=== PATIENT | female | born 1955 | race Caucasian/White ===

== ENCOUNTER 2020-09-05 07:11 | Emergency (ER) | payer OTHER, SELFPAY ==
[2020-09-05 07:08] VITALS: BP 164/107; PULSE 92; RESP 18; TEMP 37.1; O2SAT 100
--- NOTE | 2020-09-05 07:15 | ECG_ITS ---
Measurements Intervals [place] Rate: 84 P: 62 NH: 203 QRS: -15 QRSD: 105 T: 68 QT: 372 QTc: 442 Interpretive Statements SINUS RHYTHM BORDERLINE AV CONDUCTION DELAY DELAYED PRECORDIAL R/S TRANSITION MINIMAL Q WAVES- HIGH LATERAL LEADS BASELINE ARTIFACT- I, II, AVR, AVL BORDERLINE ECG Electronically Signed On 09-05-2020 7:21:29 CDT by Miguel Angel Haywood D.O.
[2020-09-05 07:31] VITALS: BP 153/80; BP 166/86; PULSE 84; PULSE 85
[2020-09-05 07:32] VITALS: BP 161/88; PULSE 89
[2020-09-05 07:54] LABS: Basophils Absolute Auto 0.1 K/mm3 (0.0-0.1); Basophils Percent Auto 0.5 % (0.2-1.2); Eosinophils Absolute Auto 0.3 K/mm3 (0-0.3); Eosinophils Percent Auto 2.6 % (0-4.4); Hemoglobin 13.1 g/dL (12.0-15.0); Immature Granulocyte Absolute 0.04 K/mm3 (0.00-0.031); Immature Granulocyte Percent A 0.4 % (0-0.5); Lymphocytes Absolute Auto 2.61 K/mm3 (0.9-3.2); Lymphocytes Percent Auto 24.4 % (18.3-44.2); Mean Corpuscular Hemoglobin 31.1 pg (26-34); Mean Corpuscular Volume 97.4 fl (80-100); Monocytes Absolute Auto 0.6 K/mm3 (0.1-0.6); Monocytes Percent Auto 5.6 % (2.6-8.5); Neutrophils Absolute Auto 7.1 K/mm3 (1.3-6.7); Neutrophils Percent Auto 66.5 % (45.5-73.1); Platelet Count Result 329 k/mm3 (150-375); Red Blood Count 4.21 M/mm3 (4.2-5.4); Red Cell Distribution Width 12.7 % (11.5-14.5); White Blood Count 10.7 K/mm3 (4.5-10.0)
[2020-09-05 07:55] LABS: Add Urine Microscopic? NO; Appearance Urine Clear (Clear); Bilirubin Urine Negative (Negative); Blood Urine Negative (Negative); Color Urine Yellow (Yellow); Glucose Urine UA Negative (Negative); Ketones Urine Negative (Negative); Leukocyte Esterase Ur Negative LEU/UL (Negative); Nitrate Urine Negative (Negative); Protein Urine Negative (Negative); Specific Grav Ur 1.015 (1.001-1.035); Urobilinogen Urine Negative mg/dL (<2.0)
[2020-09-05 08:05] LABS: Anion Gap 6 mmol/L (8-16); Blood Urea Nitrogen 19 mg/dL (7-17); Calcium 9.2 mg/dL (8.4-10.2); Carbon Dioxide 28 mmol/L (22-30); Chloride 107 mmol/L (98-107); Estimated CRCL calculation 68 ml/min; Estimated Glomerular Filt Rate > 60; Glucose 148 mg/dL (65-105); Potassium 4.1 mmol/L (3.4-5.0); Sodium 141 mmol/L (137-145)
[2020-09-05 08:58] LABS: Troponin I < 0.012 ng/mL (0.000-0.034)
[2020-09-05 09:50] VITALS: BP 170/102; PULSE 81; RESP 19; O2SAT 99
--- NOTE | 2020-09-05 10:07 | ED.DIZZY ---
HPI - Dizziness General Chief Complaint: Dizziness Stated Complaint: dizzy Time Seen by Provider: 09/05/20 08:31 Source: patient Mode of arrival: ambulatory Limitations: no limitations History of Present Illness HPI Narrative: 64-year-old female Presents for evaluation of an episode of dizziness Patient states she was working at a [employer] this morning when everything started spinning and she had to kneel down because she thought she might fall or faint; but she did not do either of those things Symptoms improved after a few minutes She notes she had a similar episode 2 days previous which was less severe Patient also reports that 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 Harman for that Here she reported some mild nausea which was transient and there was no vomiting No visual symptoms and no gait disturbance, no chest discomfort no palpitations MD elicited complaint: dizziness Related Data Home Medications Medication Instructions Recorded Confirmed atorvastatin 20 mg tablet 20 mg PO DAILY 04/19/20 fenofibrate 160 mg tablet 160 mg PO DAILY 04/19/20 omeprazole 20 mg capsule,delayed 20 mg PO BID 04/19/20 release amlodipine-benazepril cap 09/05/20 bupropion HCl PO 09/05/20 09/05/20 desvenlafaxine succinate [Pristiq] 100 mg PO DAILY 09/05/20 09/05/20 metaxalone 800 mg PO TID 09/05/20 09/05/20 zolpidem mg SUBLINGUAL 09/05/20 Allergies Allergy/AdvReac Type Severity Reaction Status Date / Time No Known Allergies Allergy Verified 09/05/20 07:19 Review of Systems Review of Systems: All systems reviewed & are unremarkable except as noted in HPI and below Constitutional: Constitutional: Denies fatigue, Denies fever(s) and Denies headache(s) Eyes: Eyes: Reports no additional eye complaints and Denies change in vision ENT: Denies headache(s), Denies epistaxis, Denies nasal congestion and Denies sore throat Comments: Hearing loss left ear, tinnitus Cardiovascular: Cardiovascular: Denies chest pain, Denies rapid heart rate, Denies leg edema, Denies palpitations and Denies dyspnea Respiratory: Respiratory: Denies cough and Denies dyspnea Gastrointestinal: Gastrointestinal: Denies abdominal pain, Denies diarrhea, Reports nausea and Denies vomiting Genitourinary: Genitourinary: Denies urinary frequency and Denies dysuria Musculoskeletal: Musculoskeletal: Denies deformity, Denies arthralgias, Denies joint swelling, Denies muscle weakness and Denies numbness Integumentary/Breasts: Skin/Breast: Denies rash and Denies wounds Neurologic: Denies headache(s), Denies focal weakness, Denies numbness and Denies weakness Psychiatric: Psychiatric: Reports no additional psychiatric complaints Endocrine: Endocrine: Denies fatigue and Denies palpitations Hematologic/Lymphatic: Hematologic/Lymphatic: Denies easy bleeding and Denies easy bruising PMFSH Family History Family History (Updated 02/19/18 @ 15:57 by DOCTOR UNKNOWN) Other Diabetes mellitus Family history of cardiovascular disease Hypertension Social History Social History (Updated 04/19/20 @ 14:59 by Kat Romero, [facility]) Smoking packs per day: 1 Smoking cigarettes per day: 20.0 Years smoked: 25 Smoking pack-years: 25.00 Smoking status: Current every day smoker Tobacco type: cigarettes Second hand tobacco smoke exposure: No Alcohol intake: former Substance use: never Substance use type: does not use Gender identity (if verbalized by the patient): Female Exam Const: General: no acute distress, well developed, alert and awake Orientation/consciousness: patient oriented x3 (alert) Limitations: no limitations HENMT: Head: normocephalic and atraumatic Ears: external ears normal and TM's normal bilaterally General nose exam: No nasal discharge present and no epistaxis Face and sinus: face symmetric Eyes: Conjunctivae: conjunctivae n
[2020-09-05 10:20] VITALS: BP 144/97; PULSE 69; RESP 18; O2SAT 97
== END 2020-09-05 10:28 | disposition home or self-care (01) ==
PROVIDERS: Emergency Provider Emergency Medicine; PCP Family Medicine Adolescent Medicine
DX: R42 Dizziness and giddiness (principal); H93.19 Tinnitus, unspecified ear; H91.90 Unspecified hearing loss, unspecified ear; F17.210 Nicotine dependence, cigarettes, uncomplicated; R94.31 Abnormal electrocardiogram [ECG] [EKG]
CPT/HCPCS: 36415; 80048; 81003; 84484; 85025; 93005; 99284

== ENCOUNTER → 2020-12-23 07:02 | Outpatient (CLI) | payer OTHER, SELFPAY ==
[2020-12-23 19:11] LABS: SARS-CoV-2 RNA PCR Positive
== END ==
PROVIDERS: PCP Family Medicine Adolescent Medicine; Visit Provider Family Medicine Adolescent Medicine
DX: U07.1 COVID-19 (principal)
CPT/HCPCS: C9803; U0003; U0005

== ENCOUNTER 2022-06-13 09:35 | Outpatient (CLI) | payer OTHER, SELFPAY ==
--- NOTE | ~2022-06-13 | MR_ITS ---
MRI of the brain Clinical History: Dizziness and giddiness Technique: Axial and sagittal T1-weighted images were acquired. These were followed by axial T2-weigh ines, diffusion weighted, gradient, and FLAIR images. Findings: There is no acute infarct, intracranial hemorrhage, or mass lesion. Mild chronic white jorge er changes are present at the periventricular white matter bilaterally. Ventricles and subarachnoid spaces are unremarkable. Orbits are unremarkable. Minimal left ethmoid si nus disease present. Remaining paranasal sinuses and mastoid air cells are clear. Major intracranial flow voids are intact. Sagittal midline structures are intact. IMPRESSION: No acute intracranial abnormality. Mild chronic white matter changes. Minimal left ethmoid sinus disease. Reviewed, dictated and finalized at location . 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
== END 2022-06-13 09:36 | disposition home or self-care (01) ==
PROVIDERS: PCP Family Medicine Adolescent Medicine; Visit Provider Physician Assistant
DX: R42 Dizziness and giddiness (principal); R93.0 Abnormal findings on diagnostic imaging of skull and head, not elsewhere classified
CPT/HCPCS: 70551

== ENCOUNTER 2023-02-18 10:31 | Outpatient (CLI) | payer OTHER, SELFPAY ==
[2023-02-18 11:56] LABS: Basophils Absolute Auto 0.1 K/mm3 (0.0-0.1); Basophils Percent Auto 0.5 % (0.2-1.2); Eosinophils Absolute Auto 0.2 K/mm3 (0-0.3); Eosinophils Percent Auto 1.9 % (0-4.4); Hematocrit 47.2 % (37.0-47.0); Hemoglobin 15.4 g/dL (12.0-15.0); Immature Granulocyte Absolute 0.03 K/mm3 (0.00-0.031); Immature Granulocyte Percent A 0.3 % (0-0.5); Lymphocytes Absolute Auto 2.23 K/mm3 (0.9-3.2); Lymphocytes Percent Auto 23.5 % (18.3-44.2); Mean Corpuscular HGB Conc 32.6 g/dl (32-36); Mean Corpuscular Hemoglobin 32.2 pg (26-34); Mean Corpuscular Volume 98.5 fl (80-100); Mean Platelet Volume 9.8 fl (7.4-10.4); Monocytes Absolute Auto 0.6 K/mm3 (0.1-0.6); Monocytes Percent Auto 6.3 % (2.6-8.5); Neutrophils Absolute Auto 6.4 K/mm3 (1.3-6.7); Neutrophils Percent Auto 67.5 % (45.5-73.1); Platelet Count Result 308 k/mm3 (150-375); Red Blood Count 4.79 M/mm3 (4.2-5.4); Red Cell Distribution Width 12.7 % (11.5-14.5); White Blood Count 9.5 K/mm3 (4.5-10.0)
[2023-02-18 12:11] LABS: CRP 0.8 mg/dL (<1.0); Creatine Kinase 88 U/L (30-135)
[2023-02-18 12:14] LABS: Rheumatoid Factor < 12.0 IU/ML (<12)
[2023-02-18 15:32] LABS: Erythrocyte Sedimentation Rate 5 mm/hr (0-20)
[2023-02-23 14:08] LABS: Anti Nuclear Antibody Pattern Nuclear, Nucleolar
== END 2023-02-18 10:32 | disposition home or self-care (01) ==
PROVIDERS: PCP Family Medicine Adolescent Medicine; Visit Provider Nurse Practitioner Family
DX: M79.10 Myalgia, unspecified site (principal)
CPT/HCPCS: 36415; 82550; 85025; 85652; 86038; 86039; 86140; 86430

== ENCOUNTER 2023-02-23 10:57 | Outpatient (CLI) | payer OTHER, SELFPAY ==
--- NOTE | ~2023-02-23 | CT_ITS ---
CT Scan of the Chest without Contrast: Clinical Indication: Lung cancer screening, personal history of nicotine dependence Technique: Contiguous sections were acquired throughout the chest without intravenous contrast. Dose reduction technique was used on this scan by utilizing automated exposure control and iterative recon struction technique. The dose-length product (DLP) was 183.37 mGy-cm. Findings: There is no evidence of any significant mediastinal, hilar or axillary lymphadenopathy. The mediastin al soft tissues appear normal. There is no evidence of pleural or pericardial effusion. 3 mm right lower lobe pulmonary nodule present (axial image 62). No other pulmonary nodule identified . Images through the upper abdomen reveal small calcified gallstones. 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 Impression: Lung RADS 2: Benign appearance. 12 month follow-up screening CT advised. Cholelithiasis. Reviewed, dictated and finalized at [facility]. Impression: Lung RADS 2: Benign appearance. 12 month follow-up screening CT advised. Cholelithiasis.
== END 2023-02-23 10:58 | disposition home or self-care (01) ==
PROVIDERS: PCP Family Medicine Adolescent Medicine; Visit Provider Nurse Practitioner Family
DX: Z12.2 Encounter for screening for malignant neoplasm of respiratory organs (principal); K80.20 Calculus of gallbladder without cholecystitis without obstruction; Z87.891 Personal history of nicotine dependence
CPT/HCPCS: 71271

== ENCOUNTER 2023-02-27 10:51 | Emergency (ER) | payer OTHER, SELFPAY ==
--- NOTE | ~2023-02-27 | US_ITS ---
EXAMINATION: US venous doppler [facility] DATE: 02/27/2023 12:28 INDICATION: Left lower limb pain TECHNIQUE: Bosch scale images without and with compression and Doppler images of the left lower extrem ity veins were obtained. COMPARISON: None FINDINGS: The left common femoral vein, profunda femoral vein, femoral vein, popliteal vein, peroneal trunk, posterior tibial veins, and greater saphenous vein are patent. A 1.7 cm Cisse's cyst is noted . IMPRESSION: 1. Patent left lower extremity veins. No evidence of deep venous thrombosis. Reviewed, dictated and finalized at location B.
--- NOTE | ~2023-02-27 | XR_ITS ---
EXAMINATION: XR knee LT min 4V DATE: 02/27/2023 12:14 INDICATION: Left knee pain and swelling TECHNIQUE: Four views of the left knee were obtained. COMPARISON: None. FINDINGS: Alignment is normal. No fracture or osteochondral lesion. There is mild tricompartmental os teoarthritis characterized by tiny marginal osteophytes. Chondrocalcinosis is noted. No joint effusio n/synovitis. Soft tissues are unremarkable. IMPRESSION: 1. No acute osseous abnormality. Reviewed, dictated and finalized at location B.
[2023-02-27 11:10] VITALS: BP 136/78; PULSE 78; RESP 18; TEMP 37.2; O2SAT 95
--- NOTE | 2023-02-27 12:14 | PC.NURSE ---
pt in Xray at this time.
--- NOTE | 2023-02-27 12:29 | PC.NURSE ---
pt returned to room 16 at this time
--- NOTE | 2023-02-27 12:41 | ED.GENADULT ---
HPI - General Adult General Chief complaint: Extremity Injury, Lower Stated complaint: left lower leg pain Time Seen by Provider: 02/27/23 11:05 History of Present Illness HPI narrative: Estela Watson is a 67 y/o female who presents with reports of having bilateral upper and lower extremity pain for several weeks her PCP increased her Lyrica / and Cymbalta and it helped but the pain to her left lower extremity has continued and feels worse. She denies any numbness / tingling to her leg. She complains that her pain is from her knee down to her ankle and is worse with ambulation. Related Data Allergies Allergy/AdvReac Type Severity Reaction Status Date / Time atorvastatin AdvReac Mild tinnitus Verified 02/14/23 12:51 Review of Systems Review of Systems: CONSTITUTIONAL: Denies fever, chills, or sweats. EYES: Denies visual changes, redness, or discharge. ENT: Denies rhinorrhea, congestion, sore throat, or otalgia. CARDIOVASCULAR: Denies chest pain, palpitations, or edema. RESPIRATORY: Denies cough or dyspnea. GASTROINTESTINAL: Denies abdominal pain, nausea, vomiting, or diarrhea. GENITOURINARY: Denies dysuria or hematuria. SKIN: Denies rash or itching. MUSCULOSKELETAL: Complains of pain to her left knee down to her ankle for about 3 weeks NEUROLOGIC: Denies headache, numbness, dizziness, or weakness. PSYCHIATRIC: Denies anxiety or depression. [facility] Surgical History Surgical History H/O hysterectomy with unilateral oophorectomy left oophorectomy Hx of arthrodesis right ankle 07/29 Dr. Garcia Family History Family History Mother Diabetes mellitus Heart disease CKD (chronic kidney disease) Son Melanoma Other Family history of cardiovascular disease Hypertension Social History Social History Smoking packs per day: 1 Smoking cigarettes per day: 20.0 Years smoked: 25 Smoking pack-years: 25.00 Smoking status: Current every day smoker Tobacco type: cigarettes Second hand tobacco smoke exposure: No Alcohol intake: never Substance use: never Substance use type: does not use Living arrangements: alone Occupation/Education: occupation Gender identity (if verbalized by the patient): Female Sexual Orientation (if Verbalized by the Patient): Straight or Heterosexual Spiritual care concerns: No Agree to blood products: Yes Exam Narrative: GENERAL: Well-appearing, well-nourished, and in no acute distress. HEAD: Normocephalic, atraumatic. EYES: PERRLA and EOMI. ENT: Nares clear, no rhinorrhea or epistaxis. Mucous membranes moist. Oropharynx without tonsillar hypertrophy exudate or other lesions. Bilateral TMs pearly montoya nonbulging NECK: Supple. No adenopathy or masses. No carotid bruits or JVD CHEST: Clear to auscultation. No respiratory distress. No wheezes rales or rhonchi HEART: Regular rate and rhythm. No murmur heard. Normal peripheral pulses. ABDOMEN: Soft, nontender, nondistended, normal active bowel sounds. EXTREMITIES: Normal range of motion, pain noted with palpation to left lower extremity/ evidence of a large bakers cyst behind left knee -distal pulses present SKIN: Warm, dry, no rash. NEURO: No focal deficits. Alert and oriented x3. PSYCH: Normal mood and affect. Course Vital Signs Vital signs: Vital Signs Temperature 37.2 C 02/27/23 11:10 Pulse Rate 78 02/27/23 11:10 Respiratory Rate 18 02/27/23 11:10 Blood Pressure 136/78 02/27/23 11:10 Pulse Oximetry 95 02/27/23 11:10 Temperature 37.2 C 02/27/23 11:10 Pulse Rate 78 02/27/23 11:10 Respiratory Rate 18 02/27/23 11:10 Blood Pressure 136/78 02/27/23 11:10 Pulse Oximetry 95 02/27/23 11:10 Medical Decision Making MDM Narrative Medical decision making narrative: On exam pt is noted to have pain to
[2023-02-27] MEDS: ACETAMINOPHEN 500 MG TABLET 1000 MG PO (12:57)
[2023-02-27 13:10] VITALS: BP 140/88; PULSE 61; RESP 18; O2SAT 98
== END 2023-02-27 13:11 | disposition home or self-care (01) ==
PROVIDERS: Emergency Provider Nurse Practitioner Family; PCP Family Medicine Adolescent Medicine
DX: M71.22 Synovial cyst of popliteal space [Baker], left knee (principal); M17.12 Unilateral primary osteoarthritis, left knee; F17.210 Nicotine dependence, cigarettes, uncomplicated; Z90.710 Acquired absence of both cervix and uterus; Z90.721 Acquired absence of ovaries, unilateral
CPT/HCPCS: 73564; 93971; 99284; A9270

== ENCOUNTER 2023-04-25 09:38 | Outpatient (CLI) | payer OTHER, SELFPAY ==
--- NOTE | ~2023-04-25 | MR_ITS ---
MRI of the left knee Clinical history: Pain Technique: Coronal proton density and proton density-weighted images, sagittal proton-density and T2 fat-sat images, and axial proton-density fat-saturated images were acquired. Findings: Anterior and posterior cruciate ligaments are intact. Medial collateral ligament and the la teral collateral ligament complex are intact. Popliteus tendon is intact. There is a radial tear at the posterior root of the medial meniscus. No lateral meniscal tear seen. There is diffuse high-grade chondromalacia the medial compartment with amorphous reactive marrow brenda a throughout the medial tibial plateau region. Possible early subchondral insufficiency fracture pres ent in the medial tibial plateau region. There is mild chondral thinning at the lateral joint line. T here is extensive moderate to high-grade chondromalacia patella, especially at the apex and medial fa cet. Small osteophytes are present, especially the medial joint line. Extensor mechanism is intact. Small joint effusion present. [id number] Cisse's cyst present, w ith internal debris/synovitis, or possibly chondroid loose bodies. Impression: Radial tear at the posterior to the medial meniscus. Extensive reactive marrow edema throughout the medial tibial plateau region, with suspected early sub chondral insufficiency fracture line present. Diffuse high-grade chondromalacia the medial compartment, as well as moderate to severe chondral salty warner patella. Small joint effusion with small to moderate Cisse's cyst. Multiple chondroid loose bodies versus othe r debris or synovitis within the Cisse's cyst. Reviewed, dictated and finalized at [facility]. 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 Extensive reactive marrow edema throughout the medial tibial plateau region, wi th suspected early subchondral insufficiency fracture line present. Diffuse high-grade chondromalacia the medial compartment, as well as moderate t o severe chondral malacia patella. Small joint effusion with small to moderate Cisse's cyst. Multiple chondroid lo ose bodies versus other debris or synovitis within the Cisse's cyst.
== END 2023-04-25 09:39 ==
LOC: MICIMG 09:39
PROVIDERS: PCP Family Medicine Adolescent Medicine; Visit Provider Nurse Practitioner Family
DX: S83.242A Other tear of medial meniscus, current injury, left knee, initial encounter (principal); M94.262 Chondromalacia, left knee; M25.462 Effusion, left knee; M71.22 Synovial cyst of popliteal space [Baker], left knee
CPT/HCPCS: 73721

== ENCOUNTER → 2023-05-29 13:29 | Outpatient (CLI) | payer OTHER, SELFPAY ==
--- NOTE | ~2023-05-29 | MM_ITS ---
EXAMINATION: MM screening mari BI w darshan HISTORY: Screening mammogram TECHNIQUE: Craniocaudal and mediolateral oblique 3-D tomosynthesis images were obtained and synthetic 2-D images were generated. CAD analysis was submitted and interpreted. COMPARISON: 12/15/2010 bilateral screening mammogram BREAST PARENCHYMAL COMPOSITION: The breasts are almost entirely fatty. FINDINGS: There is no evidence of suspicious mass, calcification, or architectural distortion to sugg est malignancy in either breast. There has been no suspicious interval change. IMPRESSION: 1. No mammographic evidence of malignancy. 2. Recommend routine screening mammography in one year. BI-RADS Category 1: Negative Reviewed, dictated and finalized at location A. INFRASTRUCTURE SPECIALIST
== END ==
PROVIDERS: PCP Nurse Practitioner Family; Visit Provider Nurse Practitioner Family
DX: Z12.31 Encounter for screening mammogram for malignant neoplasm of breast (principal)
CPT/HCPCS: 77063; 77067

== ENCOUNTER 2023-06-24 10:45 | Outpatient (CLI) | payer OTHER, SELFPAY ==
--- NOTE | 2023-06-24 10:51 | ECG_ITS ---
Measurements Intervals [place] Rate: 70 P: 56 NC: 213 QRS: -23 QRSD: 102 T: 109 QT: 392 QTc: 423 Interpretive Statements SINUS RHYTHM WITH FIRST DEGREE AV BLOCK BORDERLINE R WAVE PROGRESSION, ANTERIOR LEADS ST-T WAVE ABNORMALITY IN HIGH LATERAL LEADS- CONSIDER ISCHEMIA BASELINE ARTIFACT- I, II, III, AVR, AVL, AVF ABNORMAL ECG COMPARED TO ECG 09/05/2020 07:17:15 FIRST DEGREE AV BLOCK NOW PRESENT ST-T WAVE ABNORMALITY NOW PRESENT Electronically Signed On 06-24-2023 11:20:26 JUICE SCALEMAN by Miguel Angel Haywood D.O.
== END 2023-06-24 10:46 | disposition home or self-care (01) ==
LOC: ANHSURGERY 10:48
PROVIDERS: PCP Nurse Practitioner Family; Visit Provider Orthopaedic Surgery
DX: Z01.818 Encounter for other preprocedural examination (principal); I10 Essential (primary) hypertension; I44.0 Atrioventricular block, first degree; R94.31 Abnormal electrocardiogram [ECG] [EKG]; R93.1 Abnormal findings on diagnostic imaging of heart and coronary circulation
CPT/HCPCS: 93005

== ENCOUNTER 2023-07-17 09:47 | Outpatient (CLI) | payer OTHER, SELFPAY ==
--- NOTE | ~2023-07-17 | NM_ITS ---
EXAMINATION: NM meliton stress w perfusion DATE: 07/17/2023 11:51 INDICATION: Abnormal EKG TECHNIQUE: Rest images were obtained following intravenous administration of 10.3 mCi Tc99m tetrofosm in (Myoview). The patient was infused intravenously with Lexiscan (Regadenoson). Then, 33.7 mCi Tc99m tetrofosmin (Myoview) was administered intravenously, and stress images were obtained. Data was elizabeth nstructed into short axis and horizontal and vertical long axis SPECT images. Gated SPECT images were also obtained. COMPARISON: None. FINDINGS: Small region of mild decreased activity at the mid anterolateral segment on the rest and ga ines stress images which is not evident on the ungated post stress imaging is equivocal for infarct. N o nonreversible ischemia. There is normal left ventricular chamber size, wall motion and ejection fr action. Left ventricular ejection fraction measures >70%. IMPRESSION: 1. Possible small mild infarct at the mid anterolateral segment although suspicion is low. No reversi ble ischemia. 2. Left ventricular ejection fraction measuring >70%. Reviewed, dictated and finalized at location A. 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 Possible small mild infarct at the mid anterolateral segment although suspic ion is low. No reversible ischemia. 2. Left ventricular ejection fraction measuring >70%.
--- NOTE | 2023-07-17 09:50 | EST_ITS ---
Patient Info Name: Estela Watson Age: 67 years : 1955 Gender: Female Ht: 63 in Wt: 200 lbs BSA: 2.05 m2 HR: 69 bpm BP: 125 / 76 mmHg Heart Rhythm: Sinus Rhythm Exam Date: 07/17/2023 10:50 AM Exam Location: Echo Lab Patient Status: Outpatient Admit Date: 07/17/2023 Staff Ordering Physician: Jorge Alberto Soto MD Attending Provider: Jorge Alberto Soto MD Exercise Technologist: Loretta Olivares RDCS Exercise Physician: Miguel Angel Haywood DO Exam Type: CA stress meliton w NM Study Info A regadenoson stress test was performed. Summary 1. 1. Negative lexiscan stress test for ischemic ST changes by ECG criteria. 2. 2. Stable hemodynamics throughout the test. 3. 3. Nuclear scan to follow and will be reported separately. Please correlate with it. 4. 4. Patient informed of the above results. Protocol: Lexiscan Stress ECG Details Stage: REST Duration (min): 1 min : 45 sec HR (bpm): 69 SBP (mmHg): 125 DBP (mmHg): 76 Stage: REST Duration (min): 7 min : 52 sec HR (bpm): 75 SBP (mmHg): 125 DBP (mmHg): 76 Stage: STAGE 1 Duration (min): 1 min : 0 sec HR (bpm): 89 SBP (mmHg): 129 DBP (mmHg): 83 Stage: RECOVERY Duration (min): 1 min : 0 sec HR (bpm): 96 SBP (mmHg): 129 DBP (mmHg): 83 Stage: RECOVERY Duration (min): 2 min : 0 sec HR (bpm): 93 SBP (mmHg): 129 DBP (mmHg): 83 Stage: RECOVERY Duration (min): 3 min : 0 sec HR (bpm): 90 SBP (mmHg): 133 DBP (mmHg): 82 Stage: RECOVERY Duration (min): 3 min : 33 sec HR (bpm): 90 SBP (mmHg): 133 DBP (mmHg): 82 Rest HR: 75 bpm Peak HR: 97 bpm Rest Sys BP: 125 mmHg Peak Sys BP: 133 mmHg Max Pred HR: 152 bpm % Max Pred HR: 64 % Target HR: 129 bpm Max RPP: 12,901 bpm*mmHg Termination Reason: Completed protocol Cardiac Symptoms: Shortness of breath Total Time: 1 min : 0 sec Rest Oliveira BP: 76 mmHg Peak Oliveira BP: 82 mmHg Total Dose: 0.4 mg Resting ECG Sinus rhythm, borderline ST-T wave in high lateral leads. Stress ECG No ST changes. Arrhythmias None. Report Signatures
== END 2023-07-17 09:48 | disposition home or self-care (01) ==
PROVIDERS: PCP Family Medicine Adolescent Medicine; Visit Provider Family Medicine Adolescent Medicine
DX: R93.1 Abnormal findings on diagnostic imaging of heart and coronary circulation (principal); R94.31 Abnormal electrocardiogram [ECG] [EKG]
CPT/HCPCS: 78452; 93017; A9502; J2785

== ENCOUNTER 2023-07-23 12:44 | Outpatient (CLI) | payer OTHER, SELFPAY ==
[2023-07-23 13:35] LABS: Hematocrit 46.6 % (37.0-47.0); Mean Corpuscular HGB Conc 32.2 g/dl (32-36); Mean Corpuscular Hemoglobin 32.2 pg (26-34); Mean Platelet Volume 10.1 fl (7.4-10.4); Platelet Count Result 305 k/mm3 (150-375); Red Blood Count 4.66 M/mm3 (4.2-5.4); White Blood Count 8.3 K/mm3 (4.5-10.0)
[2023-07-23 13:45] LABS: Alanine Aminotransferase 30 U/L (6-35); Albumin Level 4.2 g/dL (3.5-5.1); Alkaline Phosphatase 61 U/L (38-126); Anion Gap 4 mmol/L (8-16); Aspartate Amino Transferase 37 U/L (14-36); Bilirubin,Total 0.5 mg/dL (0.2-1.3); Blood Urea Nitrogen 13 mg/dL (7-17); Calcium 9.6 mg/dL (8.4-10.2); Carbon Dioxide 29 mmol/L (22-30); Chloride 107 mmol/L (98-107); Cholesterol 195 mg/dL (0-200); Estimated Glomerular Filt Rate > 60; Glucose 105 mg/dL (65-110); HDL Direct 34 mg/dL; Potassium 3.8 mmol/L (3.4-5.0); Sodium 140 mmol/L (137-145); Triglycerides 173 mg/dL (<150)
[2023-07-23 13:56] LABS: LDL Cholesterol Direct 131 mg/dL
[2023-07-23 22:06] LABS: Hemoglobin A1C 6.1 % (<5.7)
== END 2023-07-23 12:45 | disposition home or self-care (01) ==
PROVIDERS: PCP Family Medicine Adolescent Medicine; Visit Provider Family Medicine Adolescent Medicine
DX: R73.01 Impaired fasting glucose (principal); E78.2 Mixed hyperlipidemia; I10 Essential (primary) hypertension; F17.210 Nicotine dependence, cigarettes, uncomplicated
CPT/HCPCS: 36415; 80053; 80061; 83036; 85027

== ENCOUNTER 2023-08-28 00:54 | Day surgery (SDC) | payer OTHER, SELFPAY ==
[2023-06-20 15:56] VITALS: BMI 37.8
--- NOTE | 2023-06-20 16:18 | PC.NURSE ---
Report to the Outpatient Waiting Room, entrance under the green pavilion located off [facility], at time _11:30AM on date __06/26/23 . Planned Procedure Time: _1:30PM . Time changes happen often and if your time is changed the preop area will call you the afternoon before. - You and your visitor will be asked to self-screen and do not enter if you have any COVID symptoms. - A mask is optional within the hospital at this time. Patients may have clear liquids (water, carbonated beverages, clear teas, apple juice) until 3 hours prior to surgery with a maximum of 20 ounces. - No food from midnight until time of surgery. Take the following medications with a SIP of water the morning of surgery: __DULOXETINE & ALPRAZOLAM AND MECLIZINE NEEDED DO NOT STOP ANY OF YOUR OTHER PRESCRIPTION MEDICATIONS PRIOR TO SURGERY ?EXCEPT THE FOLLOWING Medications to discontinue per physician ____NONE Date to take last dose Please no make-up, nail kuwaiti, hairspray, perfume, deodorant, or body powder the day of surgery. No jewelry (including any body piercings) or valuables the day of surgery, leave them at home. Please take a shower or bath the night before, or the morning of, surgery with an antibacterial soap. Wear comfortable, loose fitting clothing. Children are encouraged to wear pajamas. - Jewelry must be removed prior to entering the operating room. Rings and piercings that are not removed may be cut off. - The hospital will not accept responsibility for valuables. - Please leave all valuables, including medications, at home the day of surgery. If you are going home after surgery, a licensed class b truck driver must drive you home. - NO public transportation without another adult if you receive anesthesia. - We recommend that an adult stay with you for 24 hours following discharge. - We also recommend that you do not drive, make important decision, drink alcoholic beverages, or take any drugs that were not prescribed by your health care provider for at least 24 hours after your discharge time. Follow any additional instructions given to you from your surgeon. If you or anyone in your household have experienced Covid symptoms in the past week, please notify your surgeon or the nurse liaison at the phone number below for possible testing. Telephone instructions given to ___PATIENT and asked if any additional questions and then verbalized understanding. Patient advised to call surgeon office or pre surgery nurse liaison [phone] if any additional questions. Report to the Outpatient Waiting Room, entrance under the green pavilion located off [address], at time on date . Planned Procedure Time: . Time changes happen often and if your time is changed the preop area will call you the afternoon before. - You and your visitor will be asked to self-screen and do not enter if you have any COVID symptoms. - A mask is optional within the hospital at this time. Patients may have clear liquids (water, carbonated beverages, clear teas, apple juice) until 3 hours prior to surgery with a maximum of 20 ounces. - No food from midnight until time of surgery - Infants may have breast milk until 4 hours before surgery, infant formula 6 hours prior to surgery. - Children will be allowed to drink immediately following surgery. If applicable, please bring a bottle or sippy cup to assist with drinking. Juice, water, soda, and popsicles are readily available. For infants on formula, please bring formula the day of surgery. Pacifiers are allowed. Take the following medications with a SIP of water the morning of surgery: DO NOT STOP ANY OF YOUR OTHER PRESCRIPTION MEDICATIONS PRIOR TO SURGERY ?EXCEPT THE FOLLOWING Medications to discontinue per physician Date to take last dose Pl
[2023-08-21 09:41] VITALS: BMI 35.5
--- NOTE | 2023-08-21 10:04 | PC.NURSE ---
PT WAS RESCHEDULED FROM 06/26/23 TO 08/28/23 R/T ABN PRE-OP EKG. STRESS TEST COMPLETED, NO INTERVENTION. Report to the Outpatient Waiting Room, entrance under the green pavilion located off [facility], at time __11:30AM on date __08/28/23 . Planned Procedure Time: __1:30PM . Time changes happen often and if your time is changed the preop area will call you the afternoon before. - You and your visitor will be asked to self-screen and do not enter if you have any COVID symptoms. - A mask is optional within the hospital at this time. Patients may have clear liquids (water, carbonated beverages, clear teas, apple juice) until 3 hours prior to surgery with a maximum of 20 ounces. - No food from midnight until time of surgery. Take the following medications with a SIP of water the morning of surgery: __DULOXETINE. MAY TAKE ALPRAZOLAM AND MECLIZINE NEEDED._ DO NOT STOP ANY OF YOUR OTHER PRESCRIPTION MEDICATIONS PRIOR TO SURGERY ?EXCEPT THE FOLLOWING Medications to discontinue per physician NONE Date to take last dose Please no make-up, nail central african, hairspray, perfume, deodorant, or body powder the day of surgery. No jewelry (including any body piercings) or valuables the day of surgery, leave them at home. Please take a shower or bath the night before, or the morning of, surgery with an antibacterial soap. Wear comfortable, loose fitting clothing. Children are encouraged to wear pajamas. - Jewelry must be removed prior to entering the operating room. Rings and piercings that are not removed may be cut off. - The hospital will not accept responsibility for valuables. - Please leave all valuables, including medications, at home the day of surgery. If you are going home after surgery, a licensed commercial relief driver must drive you home. - NO public transportation without another adult if you receive anesthesia. - We recommend that an adult stay with you for 24 hours following discharge. - We also recommend that you do not drive, make important decision, drink alcoholic beverages, or take any drugs that were not prescribed by your health care provider for at least 24 hours after your discharge time. For Pediatric surgeries, we recommend two adults accompany the child home. Follow any additional instructions given to you from your surgeon. If you or anyone in your household have experienced Covid symptoms in the past week, please notify your surgeon or the nurse liaison at the phone number below for possible testing. Telephone instructions given to ___PATIENT and asked if any additional questions and then verbalized understanding. Patient advised to call surgeon office or pre surgery nurse liaison [phone] if any additional questions.
[2023-08-28] VITALS (9 sets, daily range): BP systolic 113–148; BP diastolic 66–80; PULSE 65–72; RESP 16–20; TEMP 36.3–36.6; O2SAT 92–100
--- NOTE | 2023-08-28 07:50 | WPDHPUPDATE1 ---
History and Physical Update Update Date/Time: 08/28/23 07:50 History and Physical has been reviewed, including an updated exam of the patient. There are NO changes in the patient's condition. Risks, benefits, and alternatives have been discussed and questions answered. Patient agrees to proceed with procedure.
[2023-08-28] MEDS: CELECOXIB 200 MG CAPSULE PO (12:36)
[2023-08-28] MEDS: ACETAMINOPHEN 500 MG TABLET 1000 MG PO (12:36)
[2023-08-28] MEDS: LACTATED RINGERS 1,000 ML 30 ML IV CONT ×2 (12:38→15:14)
--- NOTE | 2023-08-28 13:05 | WPDANESEPPF ---
Anes - Initial Pre Proc Eval Procedure: Operation Date: 08/28/23 13:30 Proposed Procedures p Left Knee Arthroscopy, Proceed As Indicated - Garcia Michele MD Date/Time: 08/28/23 13:05 Surgeon: Garcia Michele MD Pre Op Diagnosis: left knee medial meniscal tear Patient Data Age: 67 Gender: F Height: 1.6 m Weight: 94.65 kg Last Vital Signs Temp 36.6 C 08/28/23 11:51 Pulse 71 08/28/23 11:51 Resp 18 08/28/23 11:51 BP 133/76 08/28/23 11:51 Pulse Ox 96 08/28/23 11:51 O2 Del Method Room Air 08/28/23 11:51 Allergies Allergy/AdvReac Type Severity Reaction Status Date / Time atorvastatin AdvReac Mild tinnitus Verified 08/28/23 12:41 meperidine AdvReac Nausea and Verified 08/28/23 12:41 Vomiting Home Medications Medication Instructions Recorded Confirmed Type celecoxib 200 mg capsule See Rx Instructions .Route 02/14/23 08/28/23 Rx .COMPLEX #90 caps alprazolam 0.5 mg tablet 0.5 mg PO TID PRN anxiety #180 tabs 03/07/23 08/28/23 Rx zolpidem 10 mg tablet 10 mg PO QHS #90 tabs 03/21/23 08/28/23 Rx fenofibrate 160 mg tablet See Rx Instructions .Route 05/13/23 08/28/23 Rx .COMPLEX #90 tabs amlodipine 10 mg-benazepril 20 mg 1 cap PO QAM 06/20/23 08/28/23 History capsule chlorhexidine gluconate 4 % 1 applic topical ONCE #237 mL 06/20/23 08/28/23 Rx topical liquid (Hibiclens) meclizine 25 mg tablet 25 mg PO QID PRN Dizziness Or 06/20/23 08/28/23 History Vertigo duloxetine 60 mg capsule,delayed 60 mg PO BID #60 caps 08/13/23 08/28/23 Rx release tizanidine 2 mg tablet 2 mg PO TID PRN muscle spasticity 08/13/23 08/28/23 Rx #60 tabs Patient hx anesthesia problems: none Family hx anesthesia problems: none Results Review: All pre-operative results and documents have been reviewed as part of the pre-operative evaluation. [facility] Past Medical History Medical History Counseling on health promotion and disease prevention Encounter for medication management Generalized osteoarthritis of multiple sites Inflammatory arthritis Left knee pain Medial meniscus tear Smoking Surgical History Surgical History H/O hysterectomy with unilateral oophorectomy left oophorectomy History of carpal tunnel surgery Hx of arthrodesis right ankle 07/29 Dr. Garcia Family History Family History Mother Diabetes mellitus Heart disease CKD (chronic kidney disease) Son Melanoma Other Family history of cardiovascular disease Hypertension Social History Social History Smoking packs per day: 1 Smoking cigarettes per day: 20.0 Years smoked: 28 Smoking pack-years: 28.00 Smoking status: Current every day smoker Tobacco type: cigarettes Second hand tobacco smoke exposure: No Additional smoking assessment comments: SMOKING 3/4 PACK/DAY CURRENTLY Alcohol intake: never Substance use: never Substance use type: does not use Living arrangements: with family Additional living arrangements comments: [facility] Occupation/Education: occupation Additional occupation/education comments: [employer] Gender identity (if verbalized by the patient): Female Sexual Orientation (if Verbalized by the Patient): Straight or Heterosexual Spiritual care concerns: No Agree to blood products: Yes Anes - Eval Final PreProcedure Day of Procedure 08/28/23 13:05 Patient weight: obese Heart: regular rate and rhythm Lungs: clear to auscultation Airway: Mallampati scale class II Neurological: alert and oriented Last oral intake: >/= 8 hours ASA classification: III Emergent: no Anesthetic plan: proceed Anesthesia type and monitoring: general LMA and standard monitoring Results Review: All pre-operative results and documents have been reviewed as part of the pre-operative evaluation. Informe
[2023-08-28] MEDS: ceFAZolin 2 GM/D5W 50 ML 2 GM/50 ML BAG IVPB (13:27)
[2023-08-28] MEDS: BUPivacaine HCL 0.5% 10 ML AMP 30 ML INFILTRATE (14:01)
--- NOTE | 2023-08-28 14:31 | P.OP_ITS ---
Procedure Note - Detailed Date of Procedure 08/28/23 Pre-op Diagnosis left knee medial meniscal tear Post-op Diagnosis Same Procedure Performed LEFT KNEE SCOPE Surgeon Garcia Michele MD Anesthesia General Description of Procedure PATIENT WAS TAKEN TO THE OR. LEFT LEG WAS PREPPED AND DRAPED STERILE. TROCARS WERE PLACED IN THE USUAL FASHION. CAMERA WAS INTRODUCED. THERE WAS CHONDROMALACIA TO THE PATELLA FEMORAL JOINT. THERE WAS A LOT OF SYNOVITIS IN ALL COMPARTMENTS. THE MEDIAL COMPARTMENT SHOWED CHONDROMALACIA TO THE MEDIAL FEMORAL CONDYLE. THERE WAS A FULL THICKNESS LESION ON THE MEDIAL FEMORAL CONDYLE. A SHAVER WAS USED TO PREFORM A CHONDROPLASTY. THERE WAS A COMPLEX MEDIAL MENISCUS TEAR. THE TEAR WAS RESECTED WITH A BITER AND A SHAVER DOWN TO A SMOOTH BASE. ABOUT 20% OF THE MENISCUS WAS REMOVED. THE ACL WAS INTACT. THE LATERAL MENISCUS WAS NOT TORN. THE LATERAL COMPARTMENT HAD MINIMAL CHO NDROMALACIA. CHONDROPLASTY WAS PREFORMED. A SYNOVECTOMY WAS PREFORMED WELL. THE PATELLO FEMORAL JOINT UNDERWENT CHONDROPLASTY. THERE WAS GRADE 2 CHONDROMALACIA IN PART OF THE TROCHLEA AND PART OF THE PATELLA. SYNOVECTOMY WAS PREFORMED IN THE SUPERIOR MEDIAL COMPARTMENT. THE WOUNDS WERE APPROXIMATED WITH 4.0 NYLON. STERILE DRESSING WAS APPLIED. PATIENT WAS EXTUBATED. Estimated Blood Loss 5 Complications No immediate complications Condition Stable Disposition PACU
[2023-08-28] MEDS: oxyCODONE HCL (*CRX) 5 MG TAB IR PO (15:58)
== END 2023-08-28 16:40 | disposition home or self-care (01) ==
PROVIDERS: PCP Family Medicine Adolescent Medicine; Visit Provider Orthopaedic Surgery
PROC: (CPT 29870; principal; 2023-08-28 13:30)
DX: M23.332 Other meniscus derangements, other medial meniscus, left knee (principal); M94.262 Chondromalacia, left knee; M65.861 Other synovitis and tenosynovitis, right lower leg; F17.210 Nicotine dependence, cigarettes, uncomplicated; E66.9 Obesity, unspecified; Z68.37 Body mass index [BMI] 37.0-37.9, adult
CPT/HCPCS: 29881; 29876; A9270; J0690; J1100; J2250; J2405; J2704; J7120

== ENCOUNTER 2023-09-12 10:03 | Outpatient (CLI) | payer OTHER, SELFPAY ==
--- NOTE | ~2023-09-12 | XR_ITS ---
XR lumbar spine 2-3V DATE: 09/12/2023 11:17 INDICATION: Low back pain TECHNIQUE: AP, lateral, coned lateral lumbosacral views COMPARISON: None FINDINGS: Osteopenia. There is thoracolumbar dextroscoliosis. Diffuse idiopathic skeletal hyperostosis of the thoracic spine. Multilevel moderate degenerative disc disease of the lumbar spine, most pronounced at T12-L1 and L1-2 . There is degenerative change at the apophyseal joints. There is 7 mm grade 1 anterolisthesis at L4-5. The lumbar pedicles are intact. No fracture or bone destruction. The sacroiliac joints are intact. IMPRESSION: Thoracolumbar dextroscoliosis Moderately severe lumbar spondylosis Grade 1 anterolisthesis at L4-5 Osteopenia Reviewed, dictated and finalized at location B.
--- NOTE | ~2023-09-12 | XR_ITS ---
XR sacroiliac joints min 3V DATE: 09/12/2023 11:17 INDICATION: Low back pain TECHNIQUE: AP and bilateral oblique views of the sacroiliac joints COMPARISON: None FINDINGS: There is mild sclerosis at the sacroiliac joints, right greater than left. No erosive delcid e or ankylosis, fracture or dislocation is evident. Degenerative disc disease is noted in the lower lumbar spine. Mild bilateral hip osteoarthritis. IMPRESSION: Degenerative change at the sacroiliac joints and lower lumbar and lumbosacral spine Reviewed, dictated and finalized at Location A. Reviewed, dictated and finalized at location B. IMPRESSION: Degenerative change at the sacroiliac joints and lower lumbar and l umbosacral spine
[2023-09-12 10:50] LABS: Hematocrit 43.3 % (37.0-47.0); Mean Corpuscular HGB Conc 32.3 g/dl (32-36); Mean Corpuscular Hemoglobin 31.7 pg (26-34); Mean Corpuscular Volume 98.2 fl (80-100); Mean Platelet Volume 9.3 fl (7.4-10.4); Platelet Count Result 327 k/mm3 (150-375); Red Blood Count 4.41 M/mm3 (4.2-5.4); Red Cell Distribution Width 12.7 % (11.5-14.5); White Blood Count 10.1 K/mm3 (4.5-10.0)
[2023-09-12 11:07] LABS: Alanine Aminotransferase 20 U/L (6-35); Albumin Level 4.2 g/dL (3.5-5.1); Alkaline Phosphatase 62 U/L (38-126); Anion Gap 8 mmol/L (4-12); Aspartate Amino Transferase 30 U/L (14-36); Bilirubin,Total 0.4 mg/dL (0.2-1.3); Blood Urea Nitrogen 20 mg/dL (7-17); CRP 0.6 mg/dL (<1.0); Calcium 9.8 mg/dL (8.4-10.2); Carbon Dioxide 23 mmol/L (22-30); Chloride 108 mmol/L (98-107); Estimated Glomerular Filt Rate > 60; Glucose 123 mg/dL (65-110); Potassium 4.1 mmol/L (3.4-5.0); Sodium 139 mmol/L (137-145); Uric Acid 4.6 mg/dL (2.5-7.5)
[2023-09-12 11:31] LABS: Vitamin D 25 Hydroxy 14.8 ng/mL
[2023-09-12 11:33] LABS: Appearance Urine Cloudy (Clear); Bilirubin Urine 2+ (Negative); Blood Urine Negative (Negative); Color Urine Dark Yellow (Yellow); Glucose Urine UA Negative (Negative); Ketones Urine Trace mg/dL (Negative); Leukocyte Esterase Ur Negative LEU/UL (Negative); Nitrate Urine Negative (Negative); Protein Urine Negative (Negative); Specific Grav Ur 1.028 (1.001-1.035)
[2023-09-12 12:06] LABS: Add Urine Microscopic? YES
[2023-09-12 12:08] LABS: Bacteria Urine 2+ /hpf; Calcium Oxalate Crystals Urine Present /hpf
[2023-09-12 12:09] LABS: Squamous Epithelial Cell Urine Moderate /hpf (Few); WBC Urine 0-3 /hpf (0-3)
[2023-09-12 12:12] LABS: Erythrocyte Sedimentation Rate 18 mm/hr (0-20)
[2023-09-12 21:08] LABS: Complement C3 151 mg/dL (88-165)
[2023-09-14 20:04] LABS: SM Antibody <1.0; SM/RNP Antibody <1.0; SS-A <1.0; SS-B <1.0
[2023-09-17 21:15] LABS: Anti Cyclic Citrullinated Pept <16 Units (<20)
== END 2023-09-12 10:04 | disposition home or self-care (01) ==
PROVIDERS: PCP Family Medicine Adolescent Medicine; Visit Provider Internal Medicine
DX: F17.200 Nicotine dependence, unspecified, uncomplicated (principal); F33.0 Major depressive disorder, recurrent, mild; M15.9 Polyosteoarthritis, unspecified; R89.9 Unspecified abnormal finding in specimens from other organs, systems and tissues; S83.249A Other tear of medial meniscus, current injury, unspecified knee, initial encounter; Z71.89 Other specified counseling; Z79.899 Other long term (current) drug therapy; M47.896 Other spondylosis, lumbar region; M85.88 Other specified disorders of bone density and structure, other site
CPT/HCPCS: 36415; 72100; 72202; 80053; 81001; 82306; 84550; 85027; 85652; 86140; 86160; 86200; 86225; 86235

== ENCOUNTER 2024-02-19 14:28 | Emergency (ER) | payer OTHER, SELFPAY ==
--- NOTE | ~2024-02-19 | XR_ITS ---
XR chest 1V Ordering provider: Favian Ocasio MD History: 68 years Female with . r sided facial droop . Comparison: January 12, 2014 FINDINGS: MEDIASTINUM: The cardiac silhouette is not enlarged. LUNGS: No infiltrates, effusions or pneumothorax. OTHER: No free air under the diaphragm. Degenerative spine. IMPRESSION: No acute cardiopulmonary pathology. Reviewed, dictated and finalized at location A.
--- NOTE | ~2024-02-19 | CT_ITS ---
EXAMINATION: CT brain wo con DATE: 02/19/2024 14:51 INDICATION: Right-sided facial droop TECHNIQUE: Computed tomography (CT) of the head was performed without intravenous contrast. Sagittal and coronal reconstructions were performed. The mA was adjusted according to patient size. Iterative reconstruction technique was employed. The dose-length product was 681.00 mGy-cm. COMPARISON: Brain MR dated 06/13/2022 FINDINGS: Old left basal ganglia lacunar infarct, new since the prior study, extending from the left caudate nu cleus across the internal capsule and into the left lentiform nucleus. Additional very small old lacu heather infarcts at the right lentiform nucleus. No acute intracranial hemorrhage, acute infarction or ab normal extra axial fluid collection. There is mild scattered white matter hypoattenuation consistent with chronic small vessel ischemic disease. Symmetric prominence of the sulci consistent with mild ag e-appropriate diffuse cerebral volume loss. Ventricles are normal and symmetric. No mass/mass effect. The orbits, paranasal sinuses and mastoid air cells are normal. IMPRESSION: 1. No acute intracranial process. 2. Old lacunar infarcts at the bilateral basal ganglia, left greater than right. 3. Age-related changes including mild diffuse volume loss and mild scattered white matter hypoattenua tion consistent with chronic small vessel ischemic disease. Reviewed, dictated and finalized at location B. IMPRESSION: 1. No acute intracranial process. 2. Old lacunar infarcts at the bilateral basal ganglia, left greater than right . 3. Age-related changes including mild diffuse volume loss and mild scattered wh ite matter hypoattenuation consistent with chronic small vessel ischemic diseas e.
--- NOTE | 2024-02-19 14:35 | ECG_ITS ---
Test Date: 2024-02-19 14:44:40 Measurements Intervals [place] Rate: 83 P: -51 VT: 198 QRS: -45 QRSD: 97 T: 96 QT: 356 QTc: 421 Interpretive Statements SINUS RHYTHM BORDERLINE AV CONDUCTION DELAY LEFT ANTERIOR FASCICULAR BLOCK ST-T WAVE ABNORMALITY IN HIGH LATERAL LEADS- CONSIDER ISCHEMIA BASELINE ARTIFACT- I, II, AVR ABNORMAL ECG No previous ECG available for comparison Electronically Signed On 02-19-2024 14:48:29 CDT by Miguel Angel Haywood D.O.
[2024-02-19 14:36] VITALS: BP 138/91; PULSE 86; RESP 15; TEMP 36.3; O2SAT 97
[2024-02-19 14:39] LABS: Glucose Point of Care 115 mg/dl (65-105)
[2024-02-19 14:50] LABS: Basophils Percent Auto 0.4 % (0.2-1.2); Eosinophils Absolute Auto 0.2 K/mm3 (0-0.3); Eosinophils Percent Auto 1.6 % (0-4.4); Hemoglobin 15.3 g/dL (12.0-15.0); Immature Granulocyte Absolute 0.04 K/mm3 (0.00-0.031); Immature Granulocyte Percent A 0.4 % (0-0.5); Lymphocytes Absolute Auto 2.56 K/mm3 (0.9-3.2); Lymphocytes Percent Auto 25.6 % (18.3-44.2); Mean Corpuscular HGB Conc 33.3 g/dl (32-36); Mean Corpuscular Hemoglobin 32.6 pg (26-34); Mean Corpuscular Volume 97.9 fl (80-100); Mean Platelet Volume 9.7 fl (7.4-10.4); Monocytes Absolute Auto 0.6 K/mm3 (0.1-0.6); Monocytes Percent Auto 6.1 % (2.6-8.5); Neutrophils Absolute Auto 6.6 K/mm3 (1.3-6.7); Neutrophils Percent Auto 65.9 % (45.5-73.1); Platelet Count Result 300 k/mm3 (150-375); Red Cell Distribution Width 12.8 % (11.5-14.5)
[2024-02-19 14:51] VITALS: O2SAT 97
[2024-02-19 15:05] LABS: Prothrombin Time 13.5 Seconds (11.1-14.7)
[2024-02-19 15:08] LABS: Alanine Aminotransferase 23 U/L (6-35); Albumin Level 4.2 g/dL (3.5-5.1); Alkaline Phosphatase 53 U/L (38-126); Anion Gap 9 mmol/L (4-12); Aspartate Amino Transferase 36 U/L (14-36); Bilirubin,Total 0.7 mg/dL (0.2-1.3); Blood Urea Nitrogen 19 mg/dL (7-17); Carbon Dioxide 24 mmol/L (22-30); Chloride 104 mmol/L (98-107); Estimated CRCL calculation 72 ml/min; Estimated Glomerular Filt Rate > 60; Glucose 118 mg/dL (65-110); Potassium 4.3 mmol/L (3.4-5.0); Sodium 137 mmol/L (137-145)
[2024-02-19 15:18] LABS: Troponin I 0.013 ng/mL (0.000-0.034)
[2024-02-19 15:42] VITALS: BP 155/85; PULSE 88; RESP 20; O2SAT 96
--- NOTE | 2024-02-19 16:08 | ED.GENADULT ---
HPI - General Adult General Chief complaint: Neuro Symptoms/Deficit Stated complaint: R. sided facial droop when woke up this am Time Seen by Provider: 02/19/24 15:37 History of Present Illness HPI narrative: Patient is a 68-year-old female who presents ER with right facial paralysis. Notice it upon waking this morning. No infectious prodrome. No weakness or numbness to any arm or leg. No slurred speech. Denies any trauma to the face. Eating and drinking without issue. Last known well was yesterday and. She is not on blood thinning medications. Related Data Home Medications Medication Instructions Recorded Confirmed meclizine 25 mg tablet 25 mg PO QID PRN Dizziness Or 06/20/23 09/12/23 Vertigo Allergies Allergy/AdvReac Type Severity Reaction Status Date / Time atorvastatin AdvReac Mild tinnitus Verified 09/12/23 09:15 meperidine AdvReac Nausea and Verified 09/12/23 09:15 Vomiting Review of Systems Review of Systems: All systems reviewed & are unremarkable except as noted in HPI and below Constitutional: Constitutional: Reports no additional constitutional complaints ENT: Reports system reviewed and no additional complaints, except as documented Cardiovascular: Cardiovascular: Reports no additional cardiovascular complaints Respiratory: Respiratory: Reports no additional respiratory complaints Integumentary/Breasts: Skin/Breast: Reports system reviewed and no additional complaints, except as docu Neurologic: Denies syncope, Denies headache(s), Reports focal weakness and Denies numbness PMFSH Past Medical History Medical History Counseling on health promotion and disease prevention Encounter for medication management Generalized osteoarthritis of multiple sites Inflammatory arthritis Left knee pain Medial meniscus tear Smoking Surgical History Surgical History H/O hysterectomy with unilateral oophorectomy left oophorectomy History of arthroscopy of left knee (08/2023) Torn medial meniscus History of carpal tunnel surgery Hx of arthrodesis right ankle 07/29 Dr. Garcia Family History Family History Mother Diabetes mellitus Heart disease CKD (chronic kidney disease) Son Melanoma Other Family history of cardiovascular disease Hypertension Social History Social History Smoking packs per day: 1 Smoking cigarettes per day: 20.0 Years smoked: 28 Smoking pack-years: 28.00 Smoking status: Current every day smoker Tobacco type: cigarettes Second hand tobacco smoke exposure: No Additional smoking assessment comments: SMOKING 3/4 PACK/DAY CURRENTLY Alcohol intake: never Substance use: never Substance use type: does not use Living arrangements: with family Additional living arrangements comments: [facility] Occupation/Education: occupation Additional occupation/education comments: [employer] Gender identity (if verbalized by the patient): Female Sexual Orientation (if Verbalized by the Patient): Straight or Heterosexual Spiritual care concerns: No Agree to blood products: Yes Exam Narrative: GENERAL: Well-appearing, well-nourished, and in no acute distress. HEAD: Normocephalic, atraumatic. EYES: PERRL and EOMI. ENT: Mucous membranes moist. CHEST: Clear to auscultation. No respiratory distress. HEART: Regular rate and rhythm. Normal peripheral pulses. ABDOMEN: Soft, nontender, nondistended. EXTREMITIES: Normal range of motion. No edema. SKIN: Warm, dry, no rash. NEURO: Right facial droop with difficulty raising the right eyebrow and closing the right eye. Sensation intact. No upper lower extremity drift. Normal [id number] testing and pytvzn-[id number]-rrit testing. Clear speech without dysarthria or expressive aphasia. Alert and oriented x3. PSYCH: Normal mood an
[2024-02-19 17:41] VITALS: BP 122/70; PULSE 81; RESP 15; O2SAT 98
== END 2024-02-19 17:45 | disposition home or self-care (01) ==
PROVIDERS: Emergency Provider Emergency Medicine; PCP Family Medicine Adolescent Medicine
DX: G51.0 Bell's palsy (principal); F17.210 Nicotine dependence, cigarettes, uncomplicated; Z83.3 Family history of diabetes mellitus
CPT/HCPCS: 36415; 70450; 71045; 80053; 82948; 84484; 85025; 85610; 85730; 93005; 99284

== ENCOUNTER 2024-03-03 12:39 | Outpatient (CLI) | payer OTHER, SELFPAY ==
--- NOTE | ~2024-03-03 | US_ITS ---
EXAMINATION: US carotid duplex BI DATE: 03/03/2024 13:23 INDICATION: Infarcts in the bilateral basal ganglia. TECHNIQUE: Grayscale, color Doppler, and pulsed Doppler images of the cervical carotid arteries were obtained. The degree of vessel stenosis is placed in one of the following categories: normal, <50%, 5 0-69%, >=70% but less than near-occlusion, near-occlusion, or total occlusion. Note that percent sten osis relative to normal distal artery lumen diameter is indirectly measured from velocity measurement s as described by Jasen, et al. Radiology 2003; 229:340-346. COMPARISON: None. FINDINGS: RIGHT: The right common carotid artery (CCA) peak systolic velocity (PSV) is 67 cm/s. The right internal car otid artery (ICA) PSV is 36 cm/s. The right ICA end-diastolic velocity (EDV) is 13 cm/s. The right IC A/CCA PSV ratio is 0.5. Grayscale and color Doppler images yield an estimate of <50% diameter reducti on from plaque in the ICA. There is antegrade flow in the right vertebral artery. LEFT: The left CCA PSV is 60 cm/s. The left ICA PSV is 73 cm/s. The left ICA EDV is 22 cm/s. The left ICA/C CA PSV ratio is 1.2. Grayscale and color Doppler images yield an estimate of <50% diameter reduction from plaque in the ICA. There is antegrade flow in the left vertebral artery. IMPRESSION: 1. <50% stenosis in the right internal carotid artery. 2. <50% stenosis in the left internal carotid artery. Reviewed, dictated and finalized at location A.
== END 2024-03-03 12:40 | disposition home or self-care (01) ==
LOC: ANHIMG 12:40
PROVIDERS: PCP Family Medicine Adolescent Medicine; Visit Provider Family Medicine Adolescent Medicine
DX: I65.23 Occlusion and stenosis of bilateral carotid arteries (principal)
CPT/HCPCS: 93880

== ENCOUNTER 2024-08-31 11:39 | Emergency (ER) | payer OTHER, SELFPAY ==
--- NOTE | ~2024-08-31 | XR_ITS ---
XR chest 2V Ordering provider: Elizabeth Campuzano APRN History: 68 years Female with . shortness of breath, COUGH, CONGESTION HX SMOKER . Comparison: February 19, 2024 FINDINGS: MEDIASTINUM: The cardiac silhouette is not enlarged. LUNGS: No infiltrates, effusions or pneumothorax. OTHER: No free air under the diaphragm. Degenerative changes of the spine. IMPRESSION: No acute cardiopulmonary pathology. Reviewed, dictated and finalized at location A.
[2024-08-31 11:41] VITALS: BP 179/95; PULSE 95; RESP 20; TEMP 36.4; O2SAT 93
--- NOTE | 2024-08-31 11:44 | ECG_ITS ---
Test Date: 2024-08-31 11:45:54 Measurements Intervals [place] Rate: 89 P: 35 MI: 230 QRS: -45 QRSD: 109 T: 79 QT: 360 QTc: 440 Interpretive Statements SINUS RHYTHM WITH FIRST DEGREE AV BLOCK ST-T WAVE ABNORMALITY IN HIGH LATERAL LEADS LEFT ANTERIOR FASCICULAR BLOCK [QRS AXIS <= -45, QR IN I, RS IN II] Compared to ECG 02/19/2024 14:44:40 NO SIGNIFICANT CHANGES Electronically Signed On 09-01-2024 15:31:00 CDT by Lila Kirby M.D.
--- NOTE | 2024-08-31 11:45 | ED.SOB ---
HPI - SOB/Dyspnea General Chief Complaint: Shortness of Breath/Dyspnea <Elizabeth Campuzano APRN - Last Filed: 08/31/24 11:47> Stated Complaint: SOB <Elizabeth Campuzano APRN - Last Filed: 08/31/24 11:47> Time Seen by Provider: 08/31/24 11:40 <Elizabeth Campuzano APRN - Last Filed: 08/31/24 11:47> Focused HPI: Patient is a 68-year-old female who presents to the ER with shortness of breath since yesterday afternoon. She also endorses chest tightness. Patient is a cigarette smoker. She denies any history of asthma or COPD. Patient reports she does not have an inhaler at home. She endorses a history of high blood pressure, hyperlipidemia, and arthritis. GENERAL: Well-appearing, well-nourished, and in mild distress. HEAD: Normocephalic, atraumatic. CHEST: Wheezing to auscultation. ?+ respiratory distress. HEART: Regular rate and rhythm.? NEURO: ?Alert and oriented x3. Patient screened in triage and initial orders placed.? ?Additional care and disposition to be based upon?diagnostic testing and treatment. <Elizabeth Campuzano APRN - Last Filed: 08/31/24 11:47> History of Present Illness HPI Narrative: I agree with the above HPI. 68-year-old female presented emergency department for evaluation for worsening shortness of breath that started yesterday. Patient denies any recent coughs colds fevers or diagnosis of influenza or COVID this year. Patient states her symptoms started yesterday with some chest tightness and wheezing. Patient does have a 25 year smoking history. Patient denies any prior diagnosis of COPD. <Daniel Wallace MD - Last Filed: 08/31/24 21:22> Related Data Home Medications: Home Medications ?Medication ?Instructions ?Recorded ?Confirmed ?Last Taken ?Type acetaminophen 500 mg capsule 500 mg PO Q6H PRN 04/15/24 04/15/24 Unknown History <Elizabeth Campuzano APRN - Last Filed: 08/31/24 11:47> Allergies/Adverse Reactions: Allergies Allergy/AdvReac Type Severity Reaction Status Date / Time atorvastatin AdvReac Mild tinnitus Verified 08/31/24 11:39 meperidine AdvReac Nausea and Verified 08/31/24 11:39 Vomiting <Elizabeth Campuzano APRN - Last Filed: 08/31/24 11:47> Review of Systems Review of Systems: All systems reviewed & are unremarkable except as noted in HPI and below <Daniel Wallace MD - Last Filed: 08/31/24 21:22> [facility] Past Medical History Medical History: Medical History Counseling on health promotion and disease prevention Encounter for medication management Generalized osteoarthritis of multiple sites Inflammatory arthritis Left knee pain Medial meniscus tear <Elizabeth Campuzano APRN - Last Filed: 08/31/24 11:47> Surgical History Surgical History: Surgical History H/O hysterectomy with unilateral oophorectomy left oophorectomy History of arthroscopy of left knee (08/2023) Torn medial meniscus History of carpal tunnel surgery Hx of arthrodesis right ankle 07/29 Dr. Garcia <Elizabeth Campuzano APRN - Last Filed: 08/31/24 11:47> Family History Family History: Family History Mother Diabetes mellitus Heart disease CKD (chronic kidney disease) Son Melanoma Other Family history of cardiovascular disease Hypertension <Elizabeth Campuzano APRN - Last Filed: 08/31/24 11:47> Social History Social History: Social History Smoking packs per day: 1 Smoking cigarettes per day: 20.0 Years smoked: 28 Smoking pack-years: 28.00 Smoking status: Current every day smoker Tobacco type: cigarettes Second hand tobacco smoke exposure: No Additional smoking assessment comments: SMOKING 3/4 PACK/DAY CURRENTLY Alcohol intake: never Substance use: never Substance use type: does not use Living arrangements: with family Additional living arrangements comments: [facility] Occupation/Education: occupation Additional occupation/education comments: [employer] Gender identity (if verbalized by the patient): Female Sexual Orientation (if Verbalized by the Patient): Straight or Heterosexual Spiritual care concerns: No Agree to blood products: Yes <Elizabeth Campuzano APRN - Last Filed: 08/31/24 11:47> Exam Narrative: APPEARANCE: Well appearing, no pain, no distress, well-nourished. HEAD: normocephalic, atraumatic. EYES: PERRLA/EOMI, conjunctivae clear. NOSE: Normal no drainage EARS:TMS clear with good light reflex. THROAT: Pharynx clear, no exudate. NECK: Supple. No adenopathy, no masses. RESPIRATORY: Expiratory wheeze in the lower lung hernandez CARDIOVASCULAR: Regular rate and rhythm without murmurs rubs or gallops. ABDOMINAL: Soft, nontender, nondistended, normal bowel sounds MUSCULOSKELETAL: Moves all extremities. Strength/ROM intact, No edema, No calf tenderness. NEURO: Alert. Cranial nerves II through XII intact. Good gait. Good coordination SKIN: Warm, dry. Normal Color <Daniel Wallace MD - Last Filed: 08/31/24 21:22> Course Vital Signs Vital signs: Vital Signs Temperature 97.6 F 08/31/24 11:41 Pulse Rate 95 08/31/24 11:41 Respiratory Rate 20 08/31/24 11:41 Blood Pressure 179/95 H 08/31/24 11:41 Pulse Oximetry 93 08/31/24 11:41 Oxygen Delivery Room Air 08/31/24 11:41 Temperature 97.6 F 08/31/24 11:41 Pulse Rate 106 H 08/31/24 15:17 Respiratory Rate 08/31/24 15:17 Blood Pressure 109/56 L 08/31/24 15:06 Pulse Oximetry 100 08/31/24 15:06 Oxygen Delivery Room Air 08/31/24 13:12 <Elizabeth Campuzano APRN - Last Filed: 08/31/24 11:47> Vital Signs Temperature 97.6 F 08/31/24 11:41 Pulse Rate 95 08/31/24 11:41 Respiratory Rate 20 08/31/24 11:41 Blood Pressure 179/95 H 08/31/24 11:41 Pulse Oximetry 93 08/31/24 11:41 Oxygen Delivery Room Air 08/31/24 11:41 Temperature 97.6 F 08/31/24 11:41 Pulse Rate 106 H 08/31/24 15:17 Respiratory Rate 20 08/31/24 15:17 Blood Pressure 109/56 L 08/31/24 15:06 Pulse Oximetry 100 08/31/24 15:06 Oxygen Delivery Room Air 08/31/24 13:12 <Daniel Wallace MD - Last Filed: 08/31/24 21:22> MDM - SOB/Dyspnea MDM Narrative Medical decision making narrative: 68-year-old female with history of smoking present to the emergency department for evaluation for worsening shortness of breath and wheeze. Patient is currently afebrile but does have a leukocytosis of 12.3, hemoglobin of 14.9. INR is 1.0, D-dimer is 0.32. No significant abnormalities on the CMP, proBNP is 278. Patient was negative for influenza RSV and for COVID. Chest x-ray shows no acute cardiopulmonary abnormality. On re-evaluation patient states she does feel improved. Patient does still have a middle amount of wheeze but patient states she does feel improved. Patient will be discharged home with oral prednisone, albuterol spacer albuterol inhaler. Patient and family are comfortable the plan for discharge and close follow-up. <Daniel Wallace MD - Last Filed: 08/31/24 21:22> Differential Diagnosis Differential diagnosis: Likely acute exacerbation of chronic obstructive airways disease, congestive heart failure, community acquired pneumonia, asthma with exacerbation and pulmonary embolism <Daniel Wallace MD - Last Filed: 08/31/24 21:22> Lab Data Attestation: I reviewed the patient's lab results. <Daniel Wallace MD - Last Filed: 08/31/24 21:22> Result diagrams: 08/31/24 12:15 08/31/24 12:15 <Elizabeth Campuzano APRN - Last Filed: 08/31/24 11:47> Labs: Lab Results 08/31/24 Range/Units 12:15 WBC 12.3 H (4.5-10.0) K/mm3 RBC 4.75 (4.2-5.4) M/mm3 Hgb 14.9 (12.0-15.0) g/dL Hct 46.1 (37.0-47.0) % MCV 97.1 (80-100) fl MCH 31.4 (26-34) pg MCHC 32.3 (32-36) g/dl RDW 12.6 (11.5-14.5) % Plt Count 265 (150-375) k/mm3 MPV 9.9 (7.4-10.4) fl Immature Gran % (Auto) 0.4 (0-0.5) % Neut % (Auto) 76.5 H (45.5-73.1) % Lymph % (Auto) 13.5 L (18.3-44.2) % [place] % (Auto) 6.0 (2.6-8.5) % Eos % (Auto) 3.0 (0-4.4) % Baso % (Auto) 0.6 (0.2-1.2) % Lymph # (Auto) 1.66 (0.9-3.2) K/mm3 [place] # (Auto) 0.7 H (0.1-0.6) K/mm3 Eos # (Auto) 0.4 H (0-0.3) K/mm3 Baso # (Auto) 0.1 (0.0-0.1) K/mm3 Abs Immat Gran (auto) 0.05 H (0.00-0.031) K/mm3 Absolute Neuts (auto) 9.4 H (1.3-6.7) K/mm3 Absolute Nucleated RBC 0.000 (0.0-0.012) K/mm3 Nucleated RBC % 0.0 (0.0-0.2) % PT 13.6 (11.1-14.7) Seconds INR 1.0 APTT 22.6 (22.3-36.8) Seconds D-Dimer 0.32 (<0.48) ug/mL Sodium 140 (137-145) mmol/L Potassium 4.2 (3.4-5.0) mmol/L Chloride 106 (98-107) mmol/L Carbon Dioxide 24 (22-30) mmol/L Anion Gap 10 (4-12) mmol/L BUN 14 D (7-17) mg/dL Creatinine 0.71 (0.7-1.0) mg/dL Estim Creat Clear Calc 71 ml/min Estimated GFR > 60 (59 - ) Glucose 125 H (65-110) mg/dL Calcium 9.6 (8.4-10.2) mg/dL Magnesium 2.1 (1.6-2.3) mg/dL Total Bilirubin 0.8 (0.2-1.3) mg/dL AST 27 (14-36) U/L ALT 20 (6-35) U/L Alkaline Phosphatase 67 (38-126) U/L Troponin I < 0.012 (0.000-0.034) ng/mL NT-Pro-B Natriuret Pep 278 H (19.9-100) pg/mL Total Protein 8.0 (6.3-8.2) g/dL Albumin 4.6 (3.5-5.1) g/dL Influenza A (RT-PCR) Negative (Negative) Influenza B (RT-PCR) Negative (Negative) RSV (RT-PCR) Negative (Negative) SARS-CoV-2 RNA (RT-PCR) Negative (Negative) <Elizabeth Campuzano, [employer] - Last Filed: 08/31/24 11:47> Lab Results 08/31/24 Range/Units 12:15 WBC 12.3 H (4.5-10.0) K/mm3 RBC 4.75 (4.2-5.4) M/mm3 Hgb 14.9 (12.0-15.0) g/dL Hct 46.1 (37.0-47.0) % MCV 97.1 (80-100) fl MCH 31.4 (26-34) pg MCHC 32.3 (32-36) g/dl RDW 12.6 (11.5-14.5) % Plt Count 265 (150-375) k/mm3 MPV 9.9 (7.4-10.4) fl Immature Gran % (Auto) 0.4 (0-0.5) % Neut % (Auto) 76.5 H (45.5-73.1) % Lymph % (Auto) 13.5 L (18.3-44.2) % [place] % (Auto) 6.0 (2.6-8.5) % Eos % (Auto) 3.0 (0-4.4) % Baso % (Auto) 0.6 (0.2-1.2) % Lymph # (Auto) 1.66 (0.9-3.2) K/mm3 [place] # (Auto) 0.7 H (0.1-0.6) K/mm3 Eos # (Auto) 0.4 H (0-0.3) K/mm3 Baso # (Auto) 0.1 (0.0-0.1) K/mm3 Abs Immat Gran (auto) 0.05 H (0.00-0.031) K/mm3 Absolute Neuts (auto) 9.4 H (1.3-6.7) K/mm3 Absolute Nucleated RBC 0.000 (0.0-0.012) K/mm3 Nucleated RBC % 0.0 (0.0-0.2) % PT 13.6 (11.1-14.7) Seconds INR 1.0 APTT 22.6 (22.3-36.8) Seconds D-Dimer 0.32 (<0.48) ug/mL Sodium 140 (137-145) mmol/L Potassium 4.2 (3.4-5.0) mmol/L Chloride 106 (98-107) mmol/L Carbon Dioxide 24 (22-30) mmol/L Anion Gap 10 (4-12) mmol/L BUN 14 D (7-17) mg/dL Creatinine 0.71 (0.7-1.0) mg/dL Estim Creat Clear Calc 71 ml/min Estimated GFR > 60 (59 - ) Glucose 125 H (65-110) mg/dL Calcium 9.6 (8.4-10.2) mg/dL Magnesium 2.1 (1.6-2.3) mg/dL Total Bilirubin 0.8 (0.2-1.3) mg/dL AST 27 (14-36) U/L ALT 20 (6-35) U/L Alkaline Phosphatase 67 (38-126) U/L Troponin I < 0.012 (0.000-0.034) ng/mL NT-Pro-B Natriuret Pep 278 H (19.9-100) pg/mL Total Protein 8.0 (6.3-8.2) g/dL Albumin 4.6 (3.5-5.1) g/dL Influenza A (RT-PCR) Negative (Negative) Influenza B (RT-PCR) Negative (Negative) RSV (RT-PCR) Negative (Negative) SARS-CoV-2 RNA (RT-PCR) Negative (Negative) <Daniel Wallace MD - Last Filed: 08/31/24 21:22> Imaging Data Radiologist's impression: Impressions Chest X-Ray 08/31/24 12:21 IMPRESSION: No acute cardiopulmonary pathology. <Daniel Wallace MD - Last Filed: 08/31/24 21:22> ECG Data EKG #1: EKG Interpretation: normal rate, sinus rhythm, non-specific ST changes, normal QRS and normal QT <Daniel Wallace MD - Last Filed: 08/31/24 21:22> Discharge Plan Discharge Clinical Impression: COPD exacerbation <Elizabeth Campuzano APRN - Last Filed: 08/31/24 11:47> Patient Disposition: Home, Self-Care <Elizabeth Campuzano APRN - Last Filed: 08/31/24 11:47> Condition: Stable <Elizabeth Campuzano APRN - Last Filed: 08/31/24 11:47> Instructions: Antibiotic Form, COPD (Chronic Obstructive Pulmonary Disease) (ED) <Elizabeth Campuzano APRN - Last Filed: 08/31/24 11:47> Additional Instructions: Prednisone as directed for the next 5 days. Albuterol inhaler with spacer as directed. Stop smoking. Have close follow-up with your primary care physician. If you have any worsening symptoms and please call or return to the emergency department. <Elizabeth Campuzano APRN - Last Filed: 08/31/24 11:47> Patient Language: [place] <Elizabeth Campuzano APRN - Last Filed: 08/31/24 11:47> Prescriptions: New albuterol sulfate 90 mcg/actuation HFA aerosol inhaler 1 puff inhalation QID Qty: 6.7 0RF prednisone 50 mg tablet 50 mg PO DAILY Qty: 5 0RF No Action atorvastatin 10 mg tablet 10 mg PO DAILY Qty: 30 8RF tizanidine 2 mg tablet 2 mg PO TID PRN (Reason: muscle spasticity) Qty: 60 4RF acetaminophen 500 mg capsule 500 mg PO Q6H PRN phenazopyridine [Pyridium] 200 mg tablet 200 mg PO TID PRN (Reason: pain) Qty: 10 0RF aspirin [Adult Low Dose Aspirin] 81 mg tablet,delayed release (DR/EC) 81 mg PO DAILY Qty: 14 0RF zolpidem 10 mg tablet 10 mg PO QHS Qty: 90 1RF alprazolam 0.5 mg tablet 0.5 mg PO TID PRN (Reason: anxiety) Qty: 180 1RF amlodipine-benazepril 10-20 mg capsule See Rx Instructions .ROUTE .COMPLEX Qty: 90 2RF Dose Instruction: Take 1 capsule by mouth once daily Rx Instructions: Take 1 capsule by mouth once daily fenofibrate 160 mg tablet See Rx Instructions .ROUTE .COMPLEX Qty: 90 2RF Dose Instruction: TAKE 1 TABLET BY MOUTH ONCE DAILY (NEED TO COMPLETE LABS) Rx Instructions: TAKE 1 TABLET BY MOUTH ONCE DAILY (NEED TO COMPLETE LABS) celecoxib 200 mg capsule See Rx Instructions .ROUTE .COMPLEX Qty: 90 2RF Dose Instruction: Take 1 capsule by mouth once daily Rx Instructions: Take 1 capsule by mouth once daily <Elizabeth Campuzano APRN - Last Filed: 08/31/24 11:47> Follow-up/Referrals: Jorge Alberto Soto MD [Primary Care Provider] - <Elizabeth Campuzano APRN - Last Filed: 08/31/24 11:47>
[2024-08-31 12:22] LABS: Basophils Absolute Auto 0.1 K/mm3 (0.0-0.1); Basophils Percent Auto 0.6 % (0.2-1.2); Eosinophils Absolute Auto 0.4 K/mm3 (0-0.3); Hematocrit 46.1 % (37.0-47.0); Hemoglobin 14.9 g/dL (12.0-15.0); Immature Granulocyte Absolute 0.05 K/mm3 (0.00-0.031); Immature Granulocyte Percent A 0.4 % (0-0.5); Lymphocytes Absolute Auto 1.66 K/mm3 (0.9-3.2); Lymphocytes Percent Auto 13.5 % (18.3-44.2); Mean Corpuscular HGB Conc 32.3 g/dl (32-36); Mean Corpuscular Hemoglobin 31.4 pg (26-34); Mean Corpuscular Volume 97.1 fl (80-100); Mean Platelet Volume 9.9 fl (7.4-10.4); Monocytes Absolute Auto 0.7 K/mm3 (0.1-0.6); Neutrophils Absolute Auto 9.4 K/mm3 (1.3-6.7); Neutrophils Percent Auto 76.5 % (45.5-73.1); Platelet Count Result 265 k/mm3 (150-375); Red Blood Count 4.75 M/mm3 (4.2-5.4); Red Cell Distribution Width 12.6 % (11.5-14.5); White Blood Count 12.3 K/mm3 (4.5-10.0)
[2024-08-31 12:43] LABS: Alanine Aminotransferase 20 U/L (6-35); Albumin Level 4.6 g/dL (3.5-5.1); Alkaline Phosphatase 67 U/L (38-126); Anion Gap 10 mmol/L (4-12); Aspartate Amino Transferase 27 U/L (14-36); Bilirubin,Total 0.8 mg/dL (0.2-1.3); Blood Urea Nitrogen 14 mg/dL (7-17); Calcium 9.6 mg/dL (8.4-10.2); Carbon Dioxide 24 mmol/L (22-30); Chloride 106 mmol/L (98-107); Estimated CRCL calculation 71 ml/min; Estimated Glomerular Filt Rate > 60; Glucose 125 mg/dL (65-110); Magnesium 2.1 mg/dL (1.6-2.3); Potassium 4.2 mmol/L (3.4-5.0); Sodium 140 mmol/L (137-145)
[2024-08-31 12:45] LABS: Prothrombin Time 13.6 Seconds (11.1-14.7)
[2024-08-31 12:46] LABS: Partial Thromboplastin Time 22.6 Seconds (22.3-36.8)
[2024-08-31 12:53] LABS: NT Pro B Type Natriuretic Pept 278 pg/mL (19.9-100); Troponin I < 0.012 ng/mL (0.000-0.034)
[2024-08-31 12:58] LABS: Influenza A QL RT-PCR Negative (Negative); Influenza B QL RT-PCR Negative (Negative); RSV RNA, RT-PCR Negative (Negative); SARS-CoV-2 RNA PCR Negative (Negative)
[2024-08-31 13:05] LABS: D Dimer 0.32 ug/mL (<0.48)
[2024-08-31 13:12] VITALS: BP 159/82; PULSE 88; RESP 19; O2SAT 96
[2024-08-31 13:24] VITALS: PULSE 82; RESP 20
[2024-08-31] MEDS: IPRATROPIUM 0.5 MG/ALBUTEROL SULFATE 2.5 MG AMPUL.NEB 3 ML INHALATION ×3 (13:24→14:04)
[2024-08-31 14:05] VITALS: BP 139/91; PULSE 83; RESP 21; O2SAT 99
--- NOTE | 2024-08-31 15:05 | PC.NURSE ---
patient verbalizes consent to give update to daughter on patient condition. Update given to pt daughter Jeanine, letting her know pt has had a breathing treatment and we are waiting on MD to review results.
[2024-08-31 15:06] VITALS: BP 109/56; PULSE 98; RESP 19; O2SAT 100
[2024-08-31 15:17] VITALS: PULSE 106; RESP 20
[2024-08-31] MEDS: methylPREDNISolone SOD SUCC 125 MG VIAL IV PUSH (15:58)
== END 2024-08-31 16:24 | disposition home or self-care (01) ==
PROVIDERS: Registered Nurse; Emergency Provider Emergency Medicine; PCP Family Medicine Adolescent Medicine
DX: J44.1 Chronic obstructive pulmonary disease with (acute) exacerbation (principal); I10 Essential (primary) hypertension; E78.5 Hyperlipidemia, unspecified; M19.90 Unspecified osteoarthritis, unspecified site; F17.210 Nicotine dependence, cigarettes, uncomplicated; Z20.822 Contact with and (suspected) exposure to COVID-19
CPT/HCPCS: 36415; 71046; 80053; 83735; 83880; 84484; 85025; 85380; 85610; 85730; 87637; 93005; 94640; 94664; 96374; 99284; J2919

== ENCOUNTER 2024-09-11 15:02 | Outpatient (CLI) | payer OTHER, SELFPAY ==
--- NOTE | ~2024-09-11 | CT_ITS ---
CT Scan of the Chest without Contrast: Clinical Indication: Lung cancer screening, nicotine dependence Technique: Contiguous sections were acquired throughout the chest without intravenous contrast. Dose reduction technique was used on this scan by utilizing automated exposure control and iterative recon struction technique. The dose-length product (DLP) was 229.28 mGy-cm. COMPARISON: 02/23/2023 Findings: There is no evidence of any significant mediastinal, hilar or axillary lymphadenopathy. Mild coronary artery calcification is present. There is no evidence of pleural or pericardial effusion. Table 2 mm right lower lobe pulmonary nodule. Images through the upper abdomen reveal calcified gallstones. 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 Impression: Lung RADS 2: Benign appearance. 12 month follow-up screening CT advised. Reviewed, dictated and finalized at [facility]. Impression: Lung RADS 2: Benign appearance. 12 month follow-up screening CT advised.
== END 2024-09-11 15:03 | disposition home or self-care (01) ==
PROVIDERS: PCP Family Medicine Adolescent Medicine; Visit Provider Family Medicine
DX: Z12.11 Encounter for screening for malignant neoplasm of colon (principal); F17.210 Nicotine dependence, cigarettes, uncomplicated
CPT/HCPCS: 71271

== ENCOUNTER 2024-09-24 14:33 | Outpatient (CLI) | payer OTHER, SELFPAY ==
--- NOTE | 2024-09-24 16:36 | WPDPFTINT ---
PFT Procedure Performed PFT Procedure Performed Spirometry with Pre/Post Bronchodilator Plethysmography (Lung Vol) Diffusing Cap (DLCO) Flow Vol Loop PFT Interpretation This is a pulmonary function test with pre and post-bronchodilator spirometry, plethysmography and diffusing capacity. The test was performed and results interpreted in accordance with the 2019 and 2005 ATS/ERS Task Force guidelines respectively using the Global Lung Function Initiative-2012 reference equations. Patient demonstrated good effort and cooperation. Reproducibility criteria were met. The quality of the pre bronchodilator spirometry maneuver was Grade A and post bronchodilator spirometry maneuver was Grade A. Findings: Spirometry: The contour the inspiratory and expiratory flow tracing are normal. The pre bronchodilator FVC is 2.27 L, 82% predicted. The pre bronchodilator FEV1 is 1.64 L, 76% predicted. The pre bronchodilator FEV1: FVC ratio 72%. The post bronchodilator FVC is 2.36 L, representing a 4% increase. The post bronchodilator FEV1 is 1.71 L, representing a 4% increase. The post bronchodilator FEV1: FVC ratio 73%. Plethysmography: The total lung capacity is 4.15 L, 85% predicted. The functional residual capacity is 2.06 L, 74% predicted. The residual volume is 1.88 L, 89% predicted. Diffusing capacity: The diffusing capacity unadjusted for hemoglobin and carboxyhemoglobin is 13.8, 68% predicted. The diffusing capacity adjusted for alveolar volume is 3.84, 88% predicted. Impression: The spirometry is normal without evidence of an obstructive abnormality. There is no significant improvement after inhaling a single dose of albuterol. The lung volumes are normal. The diffusing capacity is normal. There are no prior studies for comparison
== END 2024-09-24 14:34 | disposition home or self-care (01) ==
PROVIDERS: PCP Family Medicine Adolescent Medicine; Visit Provider Family Medicine
DX: R06.2 Wheezing (principal)
CPT/HCPCS: 94060; 94726; 94729

== ENCOUNTER 2024-09-30 13:09 | Outpatient (CLI) | payer OTHER, SELFPAY ==
--- NOTE | ~2024-09-30 | US_ITS ---
US retroperitoneal comp Ordering provider: Sundeep Calle DO History: . R31.9 - Hematuria, unspecified . Comparison: None. Technique: Ultrasound bilateral kidneys. Findings: RIGHT KIDNEY: Measures 9.2x 5.4x 7 cm in length which is normal in size. Simple cyst seen measuring 2 .1 x 1.9 x 2cm. No renal mass or visualized echogenic stones. Otherwise, normal echotexture and conto ur. No hydronephrosis. Normal renal cortical thickness. LEFT KIDNEY: Measures 11.5x 6.6x 5.9 cm in length which is normal in size. No renal cysts. No renal m ass or visualized echogenic stones. Otherwise, normal echotexture and contour. No hydronephrosis. Nor mal renal cortical thickness. BLADDER: The wall of the urinary bladder is 2.4 mm. Normal. IMPRESSION: Simple right renal cyst. Otherwise, Normal study. Reviewed, dictated and finalized at location A.
== END 2024-09-30 13:10 | disposition home or self-care (01) ==
LOC: ANHIMG 13:10
PROVIDERS: PCP Family Medicine Adolescent Medicine; Visit Provider Family Medicine
DX: N28.1 Cyst of kidney, acquired (principal); R31.9 Hematuria, unspecified
CPT/HCPCS: 76770

== ENCOUNTER 2024-11-19 09:37 | Outpatient (CLI) | payer OTHER, SELFPAY ==
--- NOTE | ~2024-11-19 | CT_ITS ---
CT of the Abdomen and Pelvis: Indication: Hematuria Technique: 2.5 mm axial scans were obtained through the abdomen and pelvis prior to and following in travenous administration of 130 cc of Omnipaque 350. Dose reduction technique was used on this scan b y utilizing automated exposure control and iterative reconstruction technique. The dose-length produc t (DLP) was 2622.85 mGy-cm. Findings: Scans through the lung bases are unremarkable. The liver, spleen, pancreas, adrenals and left kidney are within normal limits. Calcified gallstones are present. 7 mm nonobstructing right renal stone present. No evidence of aortic aneurysm. No lymph adenopathy. No bowel obstruction or bowel wall thickening. There is no evidence to suggest acute appendicitis. La rge fat-containing umbilical hernia present. Images through the pelvis were performed. Urinary bladder unremarkable. Status post hysterectomy. No pelvic mass. No ascites. Impression: 7 mm nonobstructing right renal stone. Cholelithiasis. Large fat-containing umbilical hernia. Reviewed, dictated and finalized at location . Impression: 7 mm nonobstructing right renal stone. Cholelithiasis. Large fat-containing umbilical hernia.
[2024-11-19 10:02] LABS: Estimated Glomerular Filt Rate > 60
== END 2024-11-19 09:38 | disposition home or self-care (01) ==
PROVIDERS: PCP Family Medicine Adolescent Medicine; Visit Provider Physician Assistant
DX: N20.0 Calculus of kidney (principal); K80.20 Calculus of gallbladder without cholecystitis without obstruction; K44.9 Diaphragmatic hernia without obstruction or gangrene; R31.0 Gross hematuria
CPT/HCPCS: 74178; Q9967

== ENCOUNTER 2024-12-07 15:23 | Emergency (ER) | payer OTHER, SELFPAY ==
--- NOTE | ~2024-12-07 | XR_ITS ---
EXAMINATION: XR chest 2V Exam Date/Time: 12/07/2024 17:32 CDT HISTORY: weakness Comparison: 08/31/2024. RESULT: Lines, tubes, and devices: None. Lungs and pleura: Clear. Cardiomediastinal silhouette: Stable. Other: No acute osseous or upper abdominal finding. IMPRESSION: No acute cardiopulmonary process. Reviewed, dictated and finalized at location K.
--- NOTE | ~2024-12-07 | CT_ITS ---
EXAMINATION: CT brain wo con DATE: 12/07/2024 17:34 INDICATION: altered mental status . TECHNIQUE: Computed tomography (CT) of the head was performed without intravenous contrast. The mA wa s adjusted according to patient size. Iterative reconstruction technique was employed. The dose-lengt h product was 681.00 mGy-cm. COMPARISON: 02/19/2024; MR brain 06/13/2022. FINDINGS: No acute intracranial hemorrhage or extra-axial fluid collection. No hydrocephalus, mass, or herniation. No acute ischemic infarct. Unremarkable dural venous sinus attenuation. No acute osseous abnormality. Minimal left inferior frontal mucosal thickening, the remaining aerated spaces are clear. Mild atrophy and chronic white matter change. Atherosclerotic intracranial calcification. Focal old l eft basal ganglia lacunar infarcts. IMPRESSION: No acute intracranial process. Reviewed, dictated and finalized at location K.
[2024-12-07 15:34] VITALS: BP 159/91; PULSE 78; RESP 18; TEMP 36.7; O2SAT 93
--- NOTE | 2024-12-07 17:18 | ECG_ITS ---
Test Date: 2024-12-07 19:46:52 Measurements Intervals [place] Rate: 71 P: 36 DC: 237 QRS: -40 QRSD: 116 T: 78 QT: 408 QTc: 445 Interpretive Statements SINUS RHYTHM WITH FIRST DEGREE AV BLOCK LEFT AXIS DEVIATION INCOMPLETE RIGHT BUNDLE BRANCH BLOCK BORDERLINE ST-T WAVE ABNORMALITY- HIGH LATERAL LEADS BASELINE ARTIFACT- I, II, III, AVR, AVL, AVF, V5 BORDERLINE ECG NONSPECIFIC T-WAVE ABNORMALITY Compared to ECG 08/31/2024 11:45:54 NO SIGNIFICANT CHANGE Electronically Signed On 12-07-2024 20:31:10 CDT by Miguel Angel Haywood D.O.
--- NOTE | 2024-12-07 17:20 | ED_ITS ---
HPI - Dizziness General Chief Complaint: Dizziness <Elizabeth Campuzano APRN - Last Filed: 12/07/24 17:25> Stated Complaint: Feeling fatigued and dizzy <Elizabeth Campuzano APRN - Last Filed: 12/07/24 17:25> Time Seen by Provider: 12/07/24 17:10 <Elizabeth Campuzano APRN - Last Filed: 12/07/24 17:25> Focused HPI: Patient is a 69-year-old female who presents to the ER with dizziness and ?feeling off. She reports her symptoms started several days ago and her dizziness worsens at night. Patient also endorses ?extreme fatigue. She denies any recent fevers, chest pain, shortness of breath, or abdominal pain. Patient endorses a history of a kidney stone, heart attack, stroke, left knee injury, and a mar in her right ankle. She reports she has seen a urologist outpatient for continued evaluation of her kidney stone. GENERAL: Well-appearing, well-nourished, and in no acute distress. HEAD: Normocephalic, atraumatic. CHEST: Clear to auscultation. ?No respiratory distress. HEART: Regular rate and rhythm.? NEURO: ?Alert and oriented x3. Patient screened in triage and initial orders placed.? ?Additional care and disposition to be based upon?diagnostic testing and treatment. <Elizabeth Campuzano APRN - Last Filed: 12/07/24 17:25> History of Present Illness HPI Narrative: As reviewed above in HPI. Patient has a primary care appointment tomorrow morning at 11:00 a.m. <Nik Thakur MD - Last Filed: 12/07/24 20:57> Related Data Home Medications: Home Medications ?Medication ?Instructions ?Recorded ?Confirmed ?Last Taken ?Type acetaminophen 500 mg capsule 500 mg PO Q6H PRN 04/15/24 10/06/24 Unknown History <Elizabeth Campuzano APRN - Last Filed: 12/07/24 17:25> Allergies/Adverse Reactions: Allergies Allergy/AdvReac Type Severity Reaction Status Date / Time atorvastatin AdvReac Mild tinnitus Verified 10/06/24 10:17 meperidine AdvReac Nausea and Verified 10/06/24 10:17 Vomiting <Elizabeth Campuzano APRN - Last Filed: 12/07/24 17:25> Review of Systems 2 Review of Systems: As reviewed above in HPI <Nik Thakur MD - Last Filed: 12/07/24 20:57> [facility] Past Medical History Medical History: Medical History Encounter for medication management Counseling on health promotion and disease prevention Generalized osteoarthritis of multiple sites Inflammatory arthritis Medial meniscus tear Left knee pain <Elizabeth Campuzano APRN - Last Filed: 12/07/24 17:25> Surgical History Surgical History: Surgical History History of arthroscopy of left knee (08/2023) Torn medial meniscus History of carpal tunnel surgery Hx of arthrodesis right ankle 07/29 Dr. Garcia H/O hysterectomy with unilateral oophorectomy left oophorectomy <Elizabeth Campuzano APRN - Last Filed: 12/07/24 17:25> Family History Family History: Family History Mother Diabetes mellitus Heart disease CKD (chronic kidney disease) Son Melanoma Father No problems noted. Sibling No problems noted. Other Family history of cardiovascular disease Hypertension <Elizabeth Campuzano APRN - Last Filed: 12/07/24 17:25> Social History Social History: Social History Smoking packs per day: 1 Smoking cigarettes per day: 20.0 Years smoked: 28 Smoking pack-years: 28.00 Smoking status: Former smoker Tobacco type: cigarettes Second hand tobacco smoke exposure: No Additional smoking assessment comments: SMOKING 3/4 PACK/DAY CURRENTLY Alcohol intake: never Substance use: never Substance use type: does not use Living arrangements: with family Additional living arrangements comments: [facility] Occupation/Education: occupation Additional occupation/education comments: [employer] Gender identity (if verbalized by the patient): Female Sexual Orientation (if Verbalized by the Patient): Straight or Heterosexual Spiritual care concerns: No Agree to blood products: Yes <Elizabeth Campuzano, CARDIAC CARE NURSE - Last Filed: 12/07/24 17:25> Exam 2 Narrative: GENERAL: [Well-appearing, well-nourished, and in no acute distress.] HEAD: [Normocephalic, atraumatic.] EYES: [PERRLA and EOMI.] ENT: Nares clear, no rhinorrhea or epistaxis. Mucous membranes moist. NECK: Supple. CHEST: [Clear to auscultation. No respiratory distress.] HEART: [Regular rate and rhythm]. No murmur heard. [Normal peripheral pulses.] ABDOMEN: [Soft, nondistended], [nontender], [No rigidity or guarding] EXTREMITIES: Normal range of motion. [No edema.] SKIN: Warm, dry, no rash. NEURO: [No focal deficits]. Alert and oriented [x3.] PSYCH: [Normal mood and affect.] <Nik Thakur MD - Last Filed: 12/07/24 20:57> Course Vital Signs Vital signs: Vital Signs Temperature 36.7 C 12/07/24 15:34 Pulse Rate 78 12/07/24 15:34 Respiratory Rate 18 12/07/24 15:34 Blood Pressure 159/91 H 12/07/24 15:34 Pulse Oximetry 93 12/07/24 15:34 Oxygen Delivery Room Air 12/07/24 15:34 Temperature 36.7 C 12/07/24 15:34 Pulse Rate 78 12/07/24 15:34 Respiratory Rate 18 12/07/24 15:34 Blood Pressure 159/91 H 12/07/24 15:34 Pulse Oximetry 93 12/07/24 15:34 Oxygen Delivery Room Air 12/07/24 15:34 <Elizabeth Campuzano, CARDIAC CARE NURSE - Last Filed: 12/07/24 17:25> Vital Signs Temperature 36.7 C 12/07/24 15:34 Pulse Rate 78 12/07/24 15:34 Respiratory Rate 18 12/07/24 15:34 Blood Pressure 159/91 H 12/07/24 15:34 Pulse Oximetry 93 12/07/24 15:34 Oxygen Delivery Room Air 12/07/24 15:34 Temperature 36.7 C 12/07/24 15:34 Pulse Rate 78 12/07/24 15:34 Respiratory Rate 18 12/07/24 15:34 Blood Pressure 159/91 H 12/07/24 15:34 Pulse Oximetry 93 12/07/24 15:34 Oxygen Delivery Room Air 12/07/24 15:34 <Nik Thakur MD - Last Filed: 12/07/24 20:57> MDM - Dizziness MDM Narrative Medical decision making narrative: 6-year-old female presenting to the emergency department for evaluation of vertiginous symptoms and fatigue. She states she has a remote history of vertigo especially when she turns the right-sided and previously been evaluated by ENT for this and been on meclizine. She ran out of this medication and has not tried anything for symptoms. Knows that she has been more fatigued for last week denies any headache or vision changes, no nausea, vomiting, fever, chills. Endorses lots of stressors in her life including a in the family yesterday. She has a primary care appointment tomorrow morning but came to the ER for evaluation. Overall very well-appearing with an unremarkable neurological assessment, normal vital signs aside from some stable hypertension. A broad workup was ordered including a CBC, CMP, TSH, magnesium level, chest x- ray, EKG, point care glucose, urinalysis and a CT of the head for further evaluation of her symptoms. Suspicion presently is for benign paroxysmal vertigo, dehydration, anemia, low suspicion central pathology such as stroke or brain bleed. Workup shows no leukocytosis or anemia. Normal platelet count. Normal coagulation panel, normal electrolytes, normal creatinine, normal glucose normal LFTs. Negative BNP. Normal TSH urinalysis without any signs of infection. Chest x-ray with no acute cardiopulmonary process. CT that of no acute intracranial pathology. EKG with normal sinus rhythm. Patient remains asymptomatic during my re-evaluations and will be sent home with as needed meclizine. She will follow-up with regular doctor tomorrow morning. <Nik Thakur MD - Last Filed: 12/07/24 20:57> Medical Records Attestation: I reviewed the patient's medical records. <Nik Thakur MD - Last Filed: 12/07/24 20:57> Lab Data Attestation: I reviewed the patient's lab results. <Nik Thakur MD - Last Filed: 12/07/24 20:57> Result diagrams: 12/07/24 18:04 12/07/24 18:04 <Elizabeth Campuzano APRN - Last Filed: 12/07/24 17:25> Labs: Lab Results 12/07/24 12/07/24 Range/Units 18:04 19:49 WBC 9.7 (4.5-10.0) K/mm3 RBC 4.38 (4.2-5.4) M/mm3 Hgb 13.7 (12.0-15.0) g/dL Hct 42.4 (37.0-47.0) % MCV 96.8 (80-100) fl MCH 31.3 (26-34) pg MCHC 32.3 (32-36) g/dl RDW 12.8 (11.5-14.5) % Plt Count 252 (150-375) k/mm3 MPV 10.3 (7.4-10.4) fl Immature Gran % (Auto) 0.4 (0-0.5) % Neut % (Auto) 71.0 (45.5-73.1) % Lymph % (Auto) 20.6 (18.3-44.2) % [place] % (Auto) 5.8 (2.6-8.5) % Eos % (Auto) 1.8 (0-4.4) % Baso % (Auto) 0.4 (0.2-1.2) % Lymph # (Auto) 1.99 (0.9-3.2) K/mm3 [place] # (Auto) 0.6 (0.1-0.6) K/mm3 Eos # (Auto) 0.2 (0-0.3) K/mm3 Baso # (Auto) 0.0 (0.0-0.1) K/mm3 Abs Immat Gran (auto) 0.04 H (0.00-0.031) K/mm3 Absolute Neuts (auto) 6.9 H (1.3-6.7) K/mm3 Absolute Nucleated RBC 0.000 (0.0-0.012) K/mm3 Nucleated RBC % 0.0 (0.0-0.2) % Sodium 139 (137-145) mmol/L Potassium 4.4 (3.4-5.0) mmol/L Chloride 106 (98-107) mmol/L Carbon Dioxide 23 (22-30) mmol/L Anion Gap 10 (4-12) mmol/L BUN 22 H (7-17) mg/dL Creatinine 0.75 (0.7-1.0) mg/dL Estim Creat Clear Calc 70 ml/min Estimated GFR > 60 (59 - ) Glucose 140 H (65-110) mg/dL Calcium 9.5 (8.4-10.2) mg/dL Magnesium 2.0 (1.6-2.3) mg/dL Total Bilirubin 0.4 (0.2-1.3) mg/dL AST 39 H (14-36) U/L ALT 28 (6-35) U/L Alkaline Phosphatase 49 (38-126) U/L NT-Pro-B Natriuret Pep 213 H (19.9-100) pg/mL Total Protein 7.5 (6.3-8.2) g/dL Albumin 4.3 (3.5-5.1) g/dL TSH (Reflex) 0.834 (0.465-4.68) uIU/mL Urine Color Yellow (Yellow) Urine Appearance Clear (Clear) Urine pH 7.5 (5.0-9.0) Ur Specific [place] 1.019 (1.001-1.035) Urine Protein Negative (Negative) mg/dL Urine Glucose (UA) Negative (Negative) mg/dL Urine Ketones Negative (Negative) mg/dL Ur Blood (Man) Negative (Negative) Urine Nitrate Negative (Negative) Urine Bilirubin Negative (Negative) Urine Urobilinogen 1.0 (<2.0) mg/dL Leukocyte Esterase Rfl Trace H (Negative) PRICE/UL Urine RBC 0-2 (0-2) /hpf Urine WBC 0-5 (0-3) /hpf Ur Squamous Epith Cells Occasional (Few) /hpf Urine Bacteria None seen /hpf Urine Casts 0-2 <Elizabeth Campuzano, CARDIAC CARE NURSE - Last Filed: 12/07/24 17:25> Lab Results 12/07/24 12/07/24 Range/Units 18:04 19:49 WBC 9.7 (4.5-10.0) K/mm3 RBC 4.38 (4.2-5.4) M/mm3 Hgb 13.7 (12.0-15.0) g/dL Hct 42.4 (37.0-47.0) % MCV 96.8 (80-100) fl MCH 31.3 (26-34) pg MCHC 32.3 (32-36) g/dl RDW 12.8 (11.5-14.5) % Plt Count 252 (150-375) k/mm3 MPV 10.3 (7.4-10.4) fl Immature Gran % (Auto) 0.4 (0-0.5) % Neut % (Auto) 71.0 (45.5-73.1) % Lymph % (Auto) 20.6 (18.3-44.2) % [place] % (Auto) 5.8 (2.6-8.5) % Eos % (Auto) 1.8 (0-4.4) % Baso % (Auto) 0.4 (0.2-1.2) % Lymph # (Auto) 1.99 (0.9-3.2) K/mm3 [place] # (Auto) 0.6 (0.1-0.6) K/mm3 Eos # (Auto) 0.2 (0-0.3) K/mm3 Baso # (Auto) 0.0 (0.0-0.1) K/mm3 Abs Immat Gran (auto) 0.04 H (0.00-0.031) K/mm3 Absolute Neuts (auto) 6.9 H (1.3-6.7) K/mm3 Absolute Nucleated RBC 0.000 (0.0-0.012) K/mm3 Nucleated RBC % 0.0 (0.0-0.2) % Sodium 139 (137-145) mmol/L Potassium 4.4 (3.4-5.0) mmol/L Chloride 106 (98-107) mmol/L Carbon Dioxide 23 (22-30) mmol/L Anion Gap 10 (4-12) mmol/L BUN 22 H (7-17) mg/dL Creatinine 0.75 (0.7-1.0) mg/dL Estim Creat Clear Calc 70 ml/min Estimated GFR > 60 (59 - ) Glucose 140 H (65-110) mg/dL Calcium 9.5 (8.4-10.2) mg/dL Magnesium 2.0 (1.6-2.3) mg/dL Total Bilirubin 0.4 (0.2-1.3) mg/dL AST 39 H (14-36) U/L ALT 28 (6-35) U/L Alkaline Phosphatase 49 (38-126) U/L NT-Pro-B Natriuret Pep 213 H (19.9-100) pg/mL Total Protein 7.5 (6.3-8.2) g/dL Albumin 4.3 (3.5-5.1) g/dL TSH (Reflex) 0.834 (0.465-4.68) uIU/mL Urine Color Yellow (Yellow) Urine Appearance Clear (Clear) Urine pH 7.5 (5.0-9.0) Ur Specific [place] 1.019 (1.001-1.035) Urine Protein Negative (Negative) mg/dL Urine Glucose (UA) Negative (Negative) mg/dL Urine Ketones Negative (Negative) mg/dL Ur Blood (Man) Negative (Negative) Urine Nitrate Negative (Negative) Urine Bilirubin Negative (Negative) Urine Urobilinogen 1.0 (<2.0) mg/dL Leukocyte Esterase Rfl Trace H (Negative) PRICE/UL Urine RBC 0-2 (0-2) /hpf Urine WBC 0-5 (0-3) /hpf Ur Squamous Epith Cells Occasional (Few) /hpf Urine Bacteria None seen /hpf Urine Casts 0-2 <Nik Thakur MD - Last Filed: 12/07/24 20:57> Imaging Data Attestation: I personally reviewed and interpreted this imaging study as follows: < Nik Thakur MD - Last Filed: 12/07/24 20:57> My impression: Impressions Head CT 12/07/24 17:40 IMPRESSION: No acute intracranial process. Chest X-Ray 12/07/24 18:10 IMPRESSION: No acute cardiopulmonary process. <Nik Thakur MD - Last Filed: 12/07/24 20:57> Discharge Plan Discharge Clinical Impression: Vertigo, Fatigue <Elizabeth Campuzano APRN - Last Filed: 12/07/24 17:25> Patient Disposition: Home <Elizabeth Campuzano APRN - Last Filed: 12/07/24 17:25> Condition: Stable <Elizabeth Campuzano APRN - Last Filed: 12/07/24 17:25> Instructions: Antibiotic Form, Dizziness (ED) <Elizabeth Campuzano APRN - Last Filed: 12/07/24 17:25> Additional Instructions: Follow-up with your regular doctor tomorrow morning. Take the meclizine as needed for vertigo. Return with any emergent concerns. <Elizabeth Campuzano APRN - Last Filed: 12/07/24 17:25> Patient Language: Kyrgyz <Elizabeth Campuzano APRN - Last Filed: 12/07/24 17:25> Prescriptions: New meclizine 25 mg tablet 25 mg PO TID PRN (Reason: dizziness) 10 Days Qty: 30 0RF No Action acetaminophen 500 mg capsule 500 mg PO Q6H PRN bupropion HCl [Wellbutrin SR] 150 mg tablet sustained-release 12 hr 150 mg PO BID 30 Days Qty: 60 2RF zolpidem 10 mg tablet 10 mg PO QHS Qty: 90 1RF alprazolam 0.5 mg tablet 0.5 mg PO TID PRN (Reason: anxiety) Qty: 180 1RF amlodipine-benazepril 10-20 mg capsule See Rx Instructions .ROUTE .COMPLEX Qty: 90 2RF Dose Instruction: Take 1 capsule by mouth once daily Rx Instructions: Take 1 capsule by mouth once daily fenofibrate 160 mg tablet See Rx Instructions .ROUTE .COMPLEX Qty: 90 2RF Dose Instruction: TAKE 1 TABLET BY MOUTH ONCE DAILY (NEED TO COMPLETE LABS) Rx Instructions: TAKE 1 TABLET BY MOUTH ONCE DAILY (NEED TO COMPLETE LABS) <Elizabeth Campuzano APRN - Last Filed: 12/07/24 17:25> Follow-up/Referrals: Jorge Alberto Soto MD [Primary Care Provider] - <Elizabeth Campuzano APRN - Last Filed: 12/07/24 17:25> Time of Disposition: 20:57 <Elizabeth Campuzano APRN - Last Filed: 12/07/24 17:25> 20:57 <Nik Thakur MD - Last Filed: 12/07/24 20:57>
[2024-12-07 18:11] LABS: Basophils Percent Auto 0.4 % (0.2-1.2); Eosinophils Absolute Auto 0.2 K/mm3 (0-0.3); Eosinophils Percent Auto 1.8 % (0-4.4); Hematocrit 42.4 % (37.0-47.0); Hemoglobin 13.7 g/dL (12.0-15.0); Immature Granulocyte Absolute 0.04 K/mm3 (0.00-0.031); Immature Granulocyte Percent A 0.4 % (0-0.5); Lymphocytes Absolute Auto 1.99 K/mm3 (0.9-3.2); Lymphocytes Percent Auto 20.6 % (18.3-44.2); Mean Corpuscular HGB Conc 32.3 g/dl (32-36); Mean Corpuscular Hemoglobin 31.3 pg (26-34); Mean Corpuscular Volume 96.8 fl (80-100); Mean Platelet Volume 10.3 fl (7.4-10.4); Monocytes Absolute Auto 0.6 K/mm3 (0.1-0.6); Monocytes Percent Auto 5.8 % (2.6-8.5); Neutrophils Absolute Auto 6.9 K/mm3 (1.3-6.7); Platelet Count Result 252 k/mm3 (150-375); Red Blood Count 4.38 M/mm3 (4.2-5.4); Red Cell Distribution Width 12.8 % (11.5-14.5); White Blood Count 9.7 K/mm3 (4.5-10.0)
[2024-12-07 18:29] LABS: Alanine Aminotransferase 28 U/L (6-35); Albumin Level 4.3 g/dL (3.5-5.1); Alkaline Phosphatase 49 U/L (38-126); Anion Gap 10 mmol/L (4-12); Aspartate Amino Transferase 39 U/L (14-36); Bilirubin,Total 0.4 mg/dL (0.2-1.3); Blood Urea Nitrogen 22 mg/dL (7-17); Calcium 9.5 mg/dL (8.4-10.2); Carbon Dioxide 23 mmol/L (22-30); Chloride 106 mmol/L (98-107); Estimated CRCL calculation 70 ml/min; Estimated Glomerular Filt Rate > 60; Glucose 140 mg/dL (65-110); Potassium 4.4 mmol/L (3.4-5.0); Sodium 139 mmol/L (137-145); Total Protein 7.5 g/dL (6.3-8.2)
[2024-12-07 18:37] LABS: NT Pro B Type Natriuretic Pept 213 pg/mL (19.9-100)
[2024-12-07 19:00] LABS: Thyroid Stimulating Hormone Reflex 0.834 uIU/mL (0.465-4.68)
[2024-12-07 19:58] LABS: Add Urine Microscopic? YES; Appearance Urine Clear (Clear); Bacteria Urine None Seen /hpf; Bilirubin Urine Negative (Negative); Blood Urine Negative (Negative); Color Urine Yellow (Yellow); Glucose Urine UA Negative (Negative); Ketones Urine Negative (Negative); Leukocyte Esterase Ur Trace LEU/UL (Negative); Nitrate Urine Negative (Negative); Non Pathogenic Casts 0-2; Protein Urine Negative (Negative); RBC Urine 0-2 /hpf (0-2); Specific Grav Ur 1.019 (1.001-1.035); Squamous Epithelial Cell Urine Occasional /hpf (Few); WBC Urine 0-5 /hpf (0-3); pH Urine 7.5 (5.0-9.0)
== END 2024-12-07 21:08 | disposition home or self-care (01) ==
PROVIDERS: Registered Nurse; Emergency Provider Student in an Organized Health Care Education/Training Program; PCP Family Medicine Adolescent Medicine
DX: R53.83 Other fatigue (principal); R42 Dizziness and giddiness; Z87.891 Personal history of nicotine dependence
CPT/HCPCS: 36415; 70450; 71046; 80053; 81001; 83735; 83880; 84443; 85025; 93005; 99284

== ENCOUNTER 2024-12-08 12:43 | Outpatient (CLI) | payer OTHER, SELFPAY ==
--- NOTE | ~2024-12-08 | XR_ITS ---
XR abdomen/kub 1V Ordering provider: Sonya Tomas PA-C History: . CALCIUM KIDNEY STONE . Comparison: None. FINDINGS: BOWEL: Nonobstructive bowel gas pattern. ORGANOMEGALY: None. SIGNIFICANT PATHOLOGIC CALCIFICATIONS: None. Dextroscoliosis with degenerative changes. A right sacroiliitis. Bilateral hip osteoarthritic changes . Pubic symphysitis. OTHER: No free air is seen under the diaphragm. IMPRESSION: NO ACUTE ABDOMINAL FINDINGS. Reviewed, dictated and finalized at location A.
[2024-12-08 14:22] LABS: Cholesterol 150 mg/dL (0-200); HDL Direct 36 mg/dL; Triglycerides 155 mg/dL (<150)
[2024-12-14 15:10] LABS: Anti Nuclear Antibody Pattern Nuclear, Homogeneous; Anti Nuclear Antibody Titer 1:40 titer
== END 2024-12-08 12:44 | disposition home or self-care (01) ==
PROVIDERS: PCP Family Medicine Adolescent Medicine; Visit Provider Physician Assistant
DX: N20.0 Calculus of kidney (principal); E78.2 Mixed hyperlipidemia; R76.8 Other specified abnormal immunological findings in serum
CPT/HCPCS: 36415; 74018; 80061; 85652; 86038; 86039

== ENCOUNTER 2025-04-20 12:53 | Outpatient (CLI) | payer OTHER, SELFPAY ==
--- NOTE | ~2025-04-20 | CT_ITS ---
PROCEDURE: [Procedure] INDICATION: Right kidney stone COMPARISON(S): November 19 TECHNIQUE: Multiplanar images of the abdomen and pelvis were obtained [without IV or oral contrast.] Diagnostic sensitivity is limited due to lack of oral contrast. Dose lowering technique and dose optimization was utilized. FINDINGS: The exam is suboptimal because of the lack of IV contrast. Inferior thorax: No significant abnormality is seen. Liver: Enlarged and fatty infiltrated. Gallbladder: The gallbladder is present. There are gallstones. Pancreas: Within normal limits. Spleen: Normal in size and appearance. Adrenal glands: There are no masses seen. Kidneys: There is no hydronephrosis seen on either side. A 7 mm right renal stone is again noted in the lower pole, not significantly changed. There is a low-density mass in the interpolar right kidney which could be a cyst but is inadequately evaluated on this noncontrast only study. GI tract: There is no evidence of bowel obstruction. Major vessels: The major vessels are normal in caliber. Sex specific pelvic organs: The uterus is not seen. Bladder: The bladder appears normal. Bones: Scoliosis and degenerative change. Minimal spondylolisthesis of L4 on L5. There is a periumbilical hernia just to the right of midline which is large in size and contains only fat. IMPRESSION: No significant interval change is seen. Nonobstructive right renal stone. Reviewed, dictated and finalized at location A. [employer]
[2025-04-20 14:28] LABS: Alanine Aminotransferase 30 U/L (6-35); Albumin Level 4.4 g/dL (3.5-5.1); Alkaline Phosphatase 53 U/L (38-126); Anion Gap 8 mmol/L (4-12); Aspartate Amino Transferase 48 U/L (14-36); Bilirubin,Total 0.6 mg/dL (0.2-1.3); Blood Urea Nitrogen 25 mg/dL (7-17); Calcium 9.3 mg/dL (8.4-10.2); Carbon Dioxide 27 mmol/L (22-30); Chloride 105 mmol/L (98-107); Estimated Glomerular Filt Rate > 60; Glucose 128 mg/dL (65-110); Potassium 4.3 mmol/L (3.4-5.0); Sodium 140 mmol/L (137-145); Total Protein 7.7 g/dL (6.3-8.2)
[2025-04-20 16:22] LABS: MALB Creatinine Ratio 7.3 mg/g (0-30)
[2025-04-20 16:38] LABS: Hemoglobin A1C 7.3 % (<5.7)
== END 2025-04-20 12:54 | disposition home or self-care (01) ==
PROVIDERS: Family Medicine; PCP Family Medicine Adolescent Medicine; Visit Provider Urology
DX: N20.0 Calculus of kidney (principal); R73.01 Impaired fasting glucose; I10 Essential (primary) hypertension; Z11.59 Encounter for screening for other viral diseases
CPT/HCPCS: 36415; 74176; 80053; 82043; 83036; 86803